=== PATIENT | male | born 1960 | race Caucasian/White ===

== ENCOUNTER 2024-12-28 09:22 | Emergency (ER) | payer MEDICARE, MEDICAID, SELFPAY ==
[2024-12-28 09:23] VITALS: BP 148/110; PULSE 91; RESP 24; TEMP 36.8; O2SAT 98; BMI 21.2
--- NOTE | 2024-12-28 09:29 | XRR_ITS ---
PROCEDURE INFORMATION: Exam: XR Chest Exam date and time: 12/28/2024 9:35 AM Age: 64 years old Clinical indication: Cough and dyspnea and shortness of breath; Additional info: Dyspnea/cough TECHNIQUE: Imaging protocol: Radiologic exam of the chest. Views: 1 view. COMPARISON: No relevant prior studies available. FINDINGS: Lungs: There is a 10 mm nodular density projecting over the left lower chest which likely represents a nipple shadow. Consider nonemergent CT chest to confirm. No acute pulmonary infiltrates identified. Pleural spaces: Minimal blunting of the right costophrenic angle suggesting trace right pleural effusion. Heart/Mediastinum: Unremarkable. No cardiomegaly. Bones/joints: Unremarkable. Soft tissues: Unremarkable. XR/XR chest 1V portable 16090 IMPRESSION: 1. 10 mm nodular density of the left lung base, likely representing a nipple shadow. Consider nonemergent CT of the chest to confirm. 2. Blunting of the right costophrenic angle suggesting trace right pleural effusion.
--- NOTE | 2024-12-28 09:39 | W.ED.SOB ---
HPI - SOB/Dyspnea General: Chief Complaint: Shortness of Breath/Dyspnea Stated Complaint: SOB Time Seen by Provider: 12/28/24 09:25 History of Present Illness: HPI Narrative: 64-year-old male presents emergency room complaining of severe anxiety associated shortness of breath he is hyperventilating when he arrives he denies chest pain no recent fevers or chills. Patient states he is normally on 2 L of oxygen while he is here we will to titrate him down to room air and while at rest his sats were 100%. Patient states he has this frequently and is adamant that he be discharged home with Ativan as soon as I came into the room. He states he moved to this area recently is quite frustrated that nobody will refill his Ativan for him. Associated symptoms: Deny abdominal pain, chest pain or fever(s) Related Data Home Medications ?Medication ?Instructions ?Recorded ?Confirmed albuterol sulfate 90 mcg/actuation 4 puff inhalation Q4H PRN 12/28/24 12/28/24 aerosol inhaler Shortness Of Breath Or Wheezing amlodipine 10 mg tablet 10 mg PO DAILY 12/28/24 12/28/24 bupropion HCl 150 mg tablet,12 hr 150 mg PO BID 12/28/24 12/28/24 sustained-release hydroxyzine pamoate 25 mg capsule 25 mg PO TID 12/28/24 12/28/24 ibuprofen 200 mg tablet (Advil) 800 mg PO Q6H PRN Fever Or Pain 12/28/24 12/28/24 lisinopril 40 mg tablet 40 mg PO DAILY 12/28/24 12/28/24 tiotropium bromide 2.5 2 puff inhalation DAILY 12/28/24 12/28/24 mcg/actuation mist for inhalation (Spiriva Respimat) Previous Rx's ?Medication ?Instructions ?Recorded lorazepam 2 mg tablet (Ativan) 2 mg sublingual TID PRN anxiety 12/28/24 #10 tabs Allergies Allergy/AdvReac Type Severity Reaction Status Date / Time No Known Allergies Allergy Verified 12/28/24 09:30 Review of Systems Const: Denies: fever(s) or chills Card: Denies: chest pain Resp: Reports: dyspnea GI: Denies: abdominal pain : Denies: dysuria, urinary frequency or urinary urgency Musc: Denies: neck pain or back pain Skin/Breast: Denies: rash Physical Exam Const: COMMON NORMALS: no acute distress GENERAL APPEARANCE: cooperative and comfortable ORIENTATION/CONSCIOUSNESS: Yes awake, Yes oriented to person, Yes oriented to place and Yes oriented to time HENMT: COMMON NORMALS: normocephalic, atraumatic and hearing grossly normal bilaterally HEAD & SCALP: normocephalic and atraumatic Resp: COMMON NORMALS: clear to auscultation bilaterally EFFORT & INSPECTION: Yes tachypneic AUSCULTATION: clear to auscultation bilaterally Cardio: COMMON NORMALS: regular rate, regular rhythm and No murmurs present (Cardio) RATE: regular rate RHYTHM: regular rhythm GI: COMMON NORMALS: Soft to palpation and No hepatosplenomegaly present AUSCULTATION: Yes normoactive bowel sounds PALPATION: Yes Soft to palpation, No Tenderness to palpation present (GI), No Guarding due to palpation present (GI) and Yes No hepatosplenomegaly present Extremity: COMMON NORMALS: normal to inspection, capillary refill normal, no clubbing, cyanosis or edema, no calf tenderness and no pedal edema Neuro: SENSORIUM/ORIENTATION: Yes oriented to person, Yes oriented to place and Yes oriented to time Skin: COMMON NORMALS: no rashes or lesions noted GENERAL SKIN EXAM: no rashes or lesions noted Course Vital Signs: Vital signs: Vital Signs Temperature 98.3 F 12/28/24 09:23 Pulse Rate 91 12/28/24 12:02 Respiratory Rate 24 H 12/28/24 09:23 Blood Pressure 148/77 12/28/24 12:02 Pulse Oximetry 99 12/28/24 12:02 Oxygen Delivery Me thod Room Air 12/28/24 09:23 MDM - SOB/Dyspnea Medical Decision Making After the Ativan patient is feeling much better is not having any further symptoms laboratory tests were unremarkable other than the ABG which showed severe hyperventilation. No acute findings on his chest x-ray or his EKG. Discharge patient home and give him a small number of Ativan to use. Encouraged him to set up with a primary care doctor and with [facility]. Medical Records I reviewed the patient's medical records. Lab Data I reviewed the patient's lab results. 12/28/24 09:58 12/28/24 09:58 Labs/Radiology: Radiology Impressions Chest X-Ray 12/28/24 09:29 IMPRESSION: 1. 10 mm nodular density of the left lung base, likely representing a nipple shadow. Consider nonemergent CT of the chest to confirm. 2. Blunting of the right costophrenic angle suggesting trace right pleural effusion. Laboratory Results WBC 9.58 10^3/uL (3.29-11.43) 12/28/24 09:58 RBC 5.97 10^6/uL (3.85-5.65) H 12/28/24 09:58 Hgb 17.10 g/dL (11.27-16.99) H 12/28/24 09:58 Hct 52.2 % (37-53) 12/28/24 09:58 MCV 87.4 fl (82-101) 12/28/24 09:58 MCH 28.6 pg (27-33) 12/28/24 09:58 MCHC 32.8 g/dL (30-55) 12/28/24 09:58 RDW 14.4 % (12.1-15.1) 12/28/24 09:58 Plt Count 308 10^3/cmm (157-399) 12/28/24 09:58 MPV 8.3 fL (7.4-10.4) 12/28/24 09:58 Neut % (Auto) 58.7 % 12/28/24 09:58 Lymph % (Auto) 29.3 % 12/28/24 09:58 [place] % (Auto) 7.4 % 12/28/24 09:58 Eos % (Auto) 3.0 % 12/28/24 09:58 Baso % (Auto) 0.7 % 12/28/24 09:58 Neut # (Auto) 5.61 10^3/uL (1.8-7.7) 12/28/24 09:58 Lymph # (Auto) 2.8 10^3/uL (0.8-4.8) 12/28/24 09:58 [place] # (Auto) 0.7 10^3/uL (0.2-0.9) 12/28/24 09:58 Eos # (Auto) 0.3 10^3/uL (0.0-0.8) 12/28/24 09:58 Baso # (Auto) 0.1 10^3/uL (0.0-0.1) 12/28/24 09:58 Nucleated RBC % (auto) 0 % 12/28/24 09:58 Nucleated RBCs # 0.0 /100WBC 12/28/24 09:58 Specimen Type Arterial 12/28/24 09:29 Sample Site Radial, left 12/28/24 09:29 ABG pH 7.62 (7.35-7.45) H* 12/28/24 09: ABG pCO2 23.0 mmHg (35-45) L 12/28/24 09: ABG pO2 77.6 mmHg (80.0-100.0) L 12/28/24 09: ABG HCO3 23.7 mmol/L (22-26) 12/28/24 09: ABG O2 Saturation 98.1 12/28/24 09: ABG Base Excess 4.6 mmol/L (-2.0-2.0) H 12/28/24 09: Shahriar Test Pos 12/28/24 09: A-a O2 Gradient 5.6 mmHg (5-10) 12/28/24 09:29 Hematocrit 53.7 % (42-52) H 12/28/24 09:29 Hgb O2 Saturation 93.9 % (95-100) L 12/28/24 09:29 Carboxyhemoglobin 3.6 %THgb (0.4-20.1) 12/28/24 09: Methemoglobin 0.7 % (0.4-1.5) 12/28/24 09: Total Hemoglobin 17.5 g/dL (14-18) 12/28/24 09: Sodium 136.0 mmol/L (131-143) 12/28/24 09:29 Potassium 3.9 mmol/L (3.5-5.0) 12/28/24 09: Glucose 103.0 mg/dL (70-115) 12/28/24 09: Ionized Calcium 1.1 mmol/L (1.1-1.4) 12/28/24 09:29 O2 Delivery Device Nc 12/28/24 09:29 O2 Liters/Min 3.0 % 12/28/24 09:29 Medical Education Manager ID [place] 12/28/24 09:29 Sodium 133 mmol/L (136-145) L 12/28/24 09:58 Potassium 4.3 mmol/L (3.5-5.1) 12/28/24 09:58 Chloride 97 mmol/L (98-107) L 12/28/24 09:58 Carbon Dioxide 22 mmol/L (22-29) 12/28/24 09:58 Anion Gap 18.3 (5-19) 12/28/24 09:58 BUN 20 mg/dL (8-23) 12/28/24 09:58 Creatinine 0.8 mg/dL (0.7-1.2) 12/28/24 09:58 GFR Calculation 97.0 mL/min (90-130) 12/28/24 09:58 Glucose 106 mg/dL (65-115) 12/28/24 09:58 Calculated Osmolality 279 mOsm/kg (285-295) L 12/28/24 09:58 Calcium 9.3 mg/dL (8.5-10.5) 12/28/24 09:58 Total Bilirubin 0.5 mg/dL (0.15-1.2) 12/28/24 09:58 AST 23 U/L (0-40) 12/28/24 09:58 ALT 28 U/L (0-41) 12/28/24 09:58 Alkaline Phosphatase 119 U/L (40-130) 12/28/24 09:58 Troponin T Baseline 9 ng/L (0-15) 12/28/24 09:58 Total Protein 7.0 g/dL (6.6-8.7) 12/28/24 09:58 Albumin 4.1 g/dL (3.5-5.2) 12/28/24 09:58 Globulin 2.9 g/dL (1.3-4.6) 12/28/24 09:58 Urine Color Yellow (Yellow) 12/28/24 10:25 Urine Appearance Clear (CLEAR) 12/28/24 10:25 Urine pH 8.0 (5-7) A 12/28/24 10:25 Ur Specific [place] 1.013 (1.005-1.030) 12/28/24 10:25 Urine Protein Negative (Negative) 12/28/24 10:25 Urine Glucose (UA) Negative (Normal) 12/28/24 10:25 Urine Ketones Negative (Negative) 12/28/24 10:25 Urine Blood Negative (Negative) 12/28/24 10:25 Urine Nitrate Negative (Negative) 12/28/24 10:25 Urine Bilirubin Negative (Negative) 12/28/24 10:25 Urine Urobilinogen 1.0 mg/dL (Negative) 12/28/24 10:25 Ur Leukocyte Esterase Negative (Negative) 12/28/24 10:25 Urine RBC 0-2 /hpf (0-2) 12/28/24 10:25 Urine WBC 0-5 /hpf (0-5) 12/28/24 10:25 Ur Squamous Epith Cells 0-5 /hpf (0-5) 12/28/24 10:25 Amorphous Sediment Not Reportable 12/28/24 10:25 Urine Bacteria None seen /hpf (NONE) 12/28/24 10:25 Hyaline Casts 0-4 /lpf H 12/28/24 10:25 Influenza A (PCR) Negative (Negative) 12/28/24 09:52 Influenza Type B (PCR) Negative (Negative) 12/28/24 09:52 RSV (PCR) Negative (Negative) 12/28/24 09:52 SARS-CoV-2 (PCR) Negative (Negative) 12/28/24 09:52 All radiology interpretation(s) finalized by discharge EKG Data EKG 1: Interpretation: EKG 12/28/2024 948 normal sinus rhythm Q waves in V12 and 3. No acute ST changes noted rate of 87 TX interval 182 QTc 425. No previous EKGs for comparison EKG 2: Interpretation: EKG 12/28/2024 1115 normal sinus rhythm rate of 83. 181 QTc 461 Q waves in V12 and [address] changes noted no ST elevation compared to previous EKG same day unchanged Discharge Plan Discharge Patient Disposition: Home Clinical Impression: Hyperventilation, Anxiety Condition: Stable Prescriptions: New lorazepam [Ativan] 2 mg tablet 2 mg sublingual TID PRN (Reason: anxiety) Qty: 10 0RF No Action bupropion HCl 150 mg tablet sustained-release 12 hr 150 mg PO BID amlodipine 10 mg tablet 10 mg PO DAILY albuterol sulfate 90 mcg/actuation HFA aerosol inhaler 4 puff INHALATION Q4H PRN (Reason: Shortness Of Breath Or Wheezing) lisinopril 40 mg tablet 40 mg PO DAILY hydroxyzine pamoate 25 mg capsule 25 mg PO TID Spiriva Respimat 2.5 mcg/actuation mist 2 puff INHALATION DAILY ibuprofen [Advil] 200 mg Tablet 800 mg PO Q6H PRN (Reason: Fever Or Pain) Discharge Orders: Discharge ED (Routine); Ordered 12/28/24 Ordered By: Justin Roe Discharge Diet: Usual diet Discharge Activity: Increase activity as tolerated Patient Instructions: Opioid Safety, Pain Management, Patient Portal & Alyssa Instructions Activity Restrictions/Additional Instructions: [facility] It is very important that you follow up as instructed or that you return to the Emergency Department should you have concerns or if your condition changes or worsens in any way. You are seen in the emergency room with an anxiety attack. You were hyperventilating at the time your arrival confirmed by your ABG. Your other laboratory studies and chest x-ray unremarkable. Be discharged home with Ativan to use 2 mg every 8 hours as needed. You should establish with a primary care doctor and with [facility] for long-term management of your anxiety issues and general health issues. Print Language: Belarusian Coding Level of Care Code ED Type Proof Reproducer for Lawrence Heath
[2024-12-28 09:40] LABS: ABG PCO2 23.0 mmHg (35-45); ABG PH Result 7.62 (7.35-7.45); Alveolar-Arterial Oxygen Gradi 5.6 mmHg (5-10); Arterial Blood Gas Hematocrit 53.7 % (42-52); Blood Gas Allen Test Pos; Blood Gas LPM 3.0 %; Blood Gas Operator Identificat WALCI; Blood Gas Sample Site Radial, left; Blood Gas Sample Type Arterial; Carboxyhemoglobin 3.6 %THgb (0.4-20.1); Glucose Level-ABG 103.0 mg/dL (70-115); HCO3 ABG 23.7 mmol/L (22-26); Ionized Calcium Level - ABG 1.1 mmol/L (1.1-1.4); Methemoglobin 0.7 % (0.4-1.5); Oxygen Saturation ABG 98.1; PO2 ABG 77.6 mmHg (80.0-100.0); Potassium Level - ABG 3.9 mmol/L (3.5-5.0); Sodium Level - ABG 136.0 mmol/L (131-143)
--- NOTE | 2024-12-28 09:48 | ECG_ITS ---
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 Measurements Intervals [place] Rate: 87 P: 72 OR: 182 QRS: 59 QRSD: 79 T: 72 QT: 352 QTc: 425 Interpretive Statements SINUS RHYTHM SEPTAL MYOCARDIAL INFARCTION , OF INDETERMINATE AGE [40+ ms Q WAVE IN V1/V2] Compared to ECG 09/30/2015 18:03:49 Myocardial infarct finding now present Electronically Signed On 12-28-2024 22:50:03 CDT by Luis Enrique Flanagan M.D. [email or web address] [id number]
[2024-12-28] MEDS: LORazepam 1 MG/0.5 ML injection IVP (10:03)
[2024-12-28 10:09] LABS: Hematocrit 52.2 % (37-53); Hemoglobin 17.10 g/dL (11.27-16.99); Mean Corpuscular HGB Conc 32.8 g/dL (30-55); Mean Corpuscular Hemoglobin 28.6 pg (27-33); Mean Corpuscular Volume 87.4 fl (82-101); Nucleated Red Blood Cells % 0 %; Platelet Count 308 10^3/cmm (157-399); Red Blood Count 5.97 10^6/uL (3.85-5.65); White Blood Count 9.58 10^3/uL (3.29-11.43)
[2024-12-28 10:25] LABS: Alanine Aminotransferase 28 U/L (0-41); Albumin Level 4.1 g/dL (3.5-5.2); Alkaline Phosphatase 119 U/L (40-130); Anion Gap 18.3 (5-19); Aspartate Amino Transferase 23 U/L (0-40); Blood Urea Nitrogen 20 mg/dL (8-23); Calcium 9.3 mg/dL (8.5-10.5); Carbon Dioxide 22 mmol/L (22-29); Chloride 97 mmol/L (98-107); Creatinine Clr Calc Pharmacy 86.5120; Globulin 2.9 g/dL (1.3-4.6); Glucose 106 mg/dL (65-115); Osmolality Calculated 279 mOsm/kg (285-295); Potassium 4.3 mmol/L (3.5-5.1); Sodium 133 mmol/L (136-145); Total Protein 7.0 g/dL (6.6-8.7)
[2024-12-28 10:27] LABS: Troponin(5th) Baseline 9 ng/L (0-15)
[2024-12-28 10:38] LABS: Glucose Urine UA Negative (Normal); Nitrate Urine Negative (Negative); Specific Gravity, Urine 1.013 (1.005-1.030)
[2024-12-28 10:43] LABS: Add Urine Microscopic? YES
--- NOTE | 2024-12-28 10:43 | PC.PHAR ---
pATIENT STATES HE HASN'T TAKEN HIS MEDICATIONS IN A WHILE . tHEN STATES MAYBE 3DAYS AGO. pATIENT HAS hYDROXYZINE AND STATES IT DOESN'T WORK AND HE DOESN'T REALLY TAKE IT . hE TAKES CLONAZAPAM BUT IS OUT AND IT HELPS BETTER WITH HIS ANXIETY. pATIENT TAKES iBPROFEN A FEW TIMES A DAY TO HELP WITH HIS ANXIETY , BUT STATES IT DOESN'T HELP GOOD BECAUSE HE WORRIES A LOT.
[2024-12-28 11:02] LABS: Respiratory Syncytial Virus Ce NEGATIVE (Negative); SARS-CoV-2 PCR NEGATIVE (Negative)
--- NOTE | 2024-12-28 11:15 | ECG_ITS ---
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 Measurements Intervals [place] Rate: 83 P: 76 VT: 181 QRS: 59 QRSD: 99 T: 72 QT: 392 QTc: 461 Interpretive Statements SINUS RHYTHM SEPTAL MYOCARDIAL INFARCTION , PROBABLY OLD [40+ ms Q WAVE IN V1/V2] Compared to ECG 12/28/2024 09:48:34 No significant changes Electronically Signed On 12-28-2024 22:49:36 CDT by Luis Enrique Flanagan M.D. [id number]
[2024-12-28 11:46] VITALS: BP 148/110; PULSE 92; O2SAT 96
[2024-12-28 12:02] VITALS: BP 148/77; PULSE 91; O2SAT 99
--- NOTE | 2024-12-29 07:39 | DCPLANNER ---
messaged [facility] and [facility] for er f/u
== END 2024-12-28 12:10 | disposition home or self-care (01) ==
PROVIDERS: Emergency Provider Family Medicine
DX: R06.4 Hyperventilation (principal); F41.9 Anxiety disorder, unspecified; Z11.52 Encounter for screening for COVID-19
CPT/HCPCS: 36415; 36600; 71045; 80051; 80053; 81001; 82330; 82805; 84484; 85025; 87637; 93005; 96374; 99285; J2060

== ENCOUNTER 2025-02-06 15:43 | Emergency (ER) | payer MEDICARE, MEDICAID, SELFPAY ==
--- OUTSIDE RECORDS SUMMARY | 2023-06-12 04:03 | XMS_ITS | Continuity of Care Document ---
Author Organization [facility] Address [address] [id number] [address] Phone Care Team Providers Care Dental Aide Name Role Phone Wiliam Mattie AWAN Unavailable Unavailable Allergies, Adverse Reactions, Alerts Substance Reaction Status Criticality No Known Allergies Active No Inform ation Medications Medication Instructions Dosage Effective Dates (start - stop) Status Comments lisinopril 40 mg tablet TAKE 1 TABLET BY MOUTH EACH DAY>>NO FURTHER REFILLS UNTIL SEEN BY PCP - Active >>NO FURTHER REFILLS UNTIL SEEN BY PCP amlodipine 10 mg tablet TAKE 1 TABLET BY ORAL ROUTE EVERY DAY>>NO FURTHER REFILLS UNTIL SEEN BY PCP - Active >>NO FURTHER REFILLS UNTIL SEEN BY PCP hydroxyzine pamoate 25 mg capsule TAKE 1 CAPSULE BY MOUTH FOUR TIMES DAILY>>NO FURTHER REFILLS UNTIL SEEN BY PCP - Active >>NO FURTHER REFILLS UNTIL SEEN BY PCP Blood Pressure Cuff check blood pressure morning and night - Active Blood Pressure Kit Check blood pressure morning and night - Active Procedures Procedure Date OFFICE/OUTPATIENT VISIT EST OFFICE/OUTPATIENT VISIT, NEW Advance Directives Directive Yes / No Effective Date File Name No Information Encounters Encounter Description Practice Location Reason(s) For Visit Diagnoses Date Provider Providers Copied on Encounter [facility], [id number]- [facility], [place]IMO Gupta, [id number], [place] tel:[phone] Family Medicine F1 No Information 4 Wiliam Phelps. [address] [facility], [place], [place], [id number] , [place]. tel:[phone] [facility], [id number]- [facility], [place], [place], [id number], [place] tel:[phone] Family Medicine F1 No Information 3 Wiliam Phelps. [address] [place], [place], [id number] , [place]. tel:[phone] OFFICE/OUTPA TIENT VISIT [facility], [id number]- [facility], [place], [place], [id number], [place] tel:[phone] Family Medicine F1 hypertension (chief complaint)Hos pital followup (chief complaint) Hypertensive crisisMood disorder 2 Dennis Chacon. [address] [place], [place], [id number] , [place]. tel:[phone] Referring Provider: Ines Collins N, [address] [place], [address] . tel:[phone] OFFICE/OUTPA TIENT VISIT, [facility], [id number]- [place], [id number], [place] tel:[phone] Family Medicine F1 Pain (chief complaint)Anx iety (chief complaint)PHQ 24 (chief complaint)hyp ertension (chief complaint) PainEstablishing care with new doctor, encounter forAnxiety 1 Wiliam Phelps. [address] [place], [place], [id number] , [place]. tel:[phone] Referring Provider: Mattie Swain R, [address] [place], [address] . tel:[phone] Family History Family Member Type Diagnosis Age At Onset No Information Payers Payer name Insurance type Covered republican ID Lyndon herrera(s) M [place] Medicaid [id number] Social History Type Description Quantity Date Captured Comments Alcohol Use Details Unknown Caffeine Use Details Unknown Tobacco Use Status Smoking Status No Information Sex Male Sexual Orientation Heterosexual Gender Identity Male Chief Complaint And Reason For Visit No Information Reason For Referral Reason For Referral No Information Plan Of Treatment Date Type Action Status Future Order: Lab Order CBC With Differential/Platelet ([id number]), Sent on: Sent Future Order: Lab Order Lipid Pr ofile ([id number]), Sent on: Sent Future Order: Lab Order CMP ([id number]), Sen t on: Sent Future Order: Lab Order PSA ([id number]), Sen t on: Sent History Of Present Illness Encounter Date Complaint History Of Prese nt Illness hypertension It is currently stable. Risk factors include age over age 60 and male gender. Associated symptoms include fatigue and headache. Pertinent negatives include chest pain, claudication and confusion. Additional information: Patient was seen at [facility] for high blood pressure. States the facility checks his BP once a week. C/o fatigue when BP 90/56 Hospital followup Pt went to ER for blood pressure reading 230/120 on 02/25. He was started on Amlodipine 5mg, Lisinopril 40mg, and He returned to ER with Blood pressure reading 168/90 on 03/05. No medications were adjusted at this time. He has his blood pressure monitored weekly at the facility, he will begin monitoring it once a week. His blood pressure today is 90/56. He is needing medications refilled today. He states that he takes his medications as prescribed. He is unsure what triggers his high blood pressure episodes. He takes hydroxyzine prn with no improvement in anxiety. PHQ 24 hypertension Anxiety This is an initi al visit. The client reports functioning as extremely difficult. The client presents with anxious/fearful thoughts and depressed mood. The Anxiety is associated with chronic pain. Additional information: Pt has anxiety and depression. Left snf AMA. Was on pain medication. Pt is living at [facility]. 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 Pt was being seen at [facility]. Pt was in snf about a month ago. Pt left AMAPt is here wanting narcotics. Pt has necrotizing fascitis. Pt has hx of alcohol abuse. Pt is living at the [facility].Pt is made and irritable today Signed records release but refused UDS. Functional Status Date Functional Assessmen t No Information Instructions Date Instruction Additional Infor yocasta Continue therapyCont inue Hydroxyzine as prescribed, refilled today Related to Mood disorder [facility] medical records on chart, reviewed with patientDiscussed when to seek immediate careLabs ordered, will followup with abnormal labsReviewed dietary guidelines for hypertension management Continue current medication and monitor BP regularly, blood pressure monitor sent to pharmacy. Provided BP log with patient to bring to followup julisa in 1 monthCall office for consistently elevated SBP > 150 mmhg or DBP > 90mmHgEmphasized importance of daily exercise and low salt diet. Related to Hypertensive crisis Signed a release. Pt is ittitable. Pt wants pain medication. Related to Anxiety Signed release for eri muhammad. Explained process for pain management. Refused UDS today. Related to Pain Mental health care education Rel ated to Pain Assessments Type Assessment Date No Information Patient Care Teams Name Effective Dates (start - stop) Status Members No Information
--- OUTSIDE RECORDS SUMMARY | 2025-01-31 10:00 | XMS_ITS | Encounter Summary ---
Author Organization [facility] Address [address] [place] [address] Care Team Providers Care Non Ferrous Material Handler Name Role Phone Jose Juan Self MD Primary Care Provider [phone] Reason for Referral * CT Scan (Routine) - Open Specialty Diagnoses / Procedures Referred By Iron aldana Referred To Contact Radiology Diagnoses Mass of upper lobe of right lung Procedures CT CHEST W CONTRAST Jose Juan Self MD [address] [address] Phone: tel: fax: [facility] CT Scan [place] [address] [address] Phone: tel: fax: Referral ID Status Reason Start Date Expiration Date V isits Requested Visits Authorized [id number] Open [facility] View CTS to Schedule 01/31/2025 03/03/2026 1 1 Reason for Visit * Reason Comments ER Follow Up COPD; pt reports he is not improving COPD Anxiety Abscess Possible abscess und er left arm; painful; no drainage Cough Very thick; yellow a nd green in color Encounter Details Date Type Department Care Team (Late st Contact Info) Description 01/31/2025 10:00 AM CDT Office Visit [facility] [place] [address] [phone] Jose Juan Self MD [address] [address] Panlobular emphysema (CMS/HCC) (Primary Dx); Essential hypertension; ANDRE (generalized anxiety disorder); Moderate episode of recurrent major depressive disorder (CMS/HCC); Chronic hepatitis C without hepatic coma (CMS/HCC); COPD with exacerbation (CMS/HCC); Chronic hypoxic respiratory failure (CMS/HCC); Chronic diastolic congestive heart failure (CMS/HCC); Tobacco use; PAD (peripheral artery disease); Panic anxiety syndrome; Mass of upper lobe of right lung; Hidradenitis suppurativa Social History Tobacco Use Types Packs/Day Years Used Date Smoking Tobacco: Every Day Cigarettes 0.3 50 Smokeless Tobacco: Former Comments:Quit smoking: Abou t ready to give that up - 2 to 3 a day 2-23 Alcohol Use Standard Drinks/Week Comments No 0 (1 standard drink = 0.6 oz pur e alcohol) Food Insecurity Answer Date Recorded Do you find you are eating l ess than you should because you can t pay for food? Yes 06/07/2024 Transportation Needs Answer Date Record ed Have you gone without health care because you didn t have a way to get there? 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 Yes 2024 Utility Needs Answer Date Recorded Do you have difficulty payin g for utility costs (electric, water or gas bills)? Yes 06/07/2024 Feeling Safe Answer Date Recorded Are you in a relationship wi th someone who hurts you emotionally and/or physically? 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 Gender Identity Not on file Sexual Orientation Not on file documented as of this encounter Last Filed Vital Signs Vital Sign Reading Time Taken Comments Blood Pressure 168/88 01/31/2025 10:07 AM CDT Pulse 98 01/31/2025 9:55 AM CDT Temperature 36.7 C (98 F) 01/31/2025 9:55 AM CDT Respiratory Rate 25 01/31/2025 9:55 AM CDT Oxygen Saturation 96% 01/31/2025 9:55 AM CDT Inhaled Oxygen Concentration - - Weight 72.1 kg (159 lb) 01/31/2025 9:55 AM CDT Height 172.7 cm (5' 8 ) 01/31/2025 9:55 AM CDT Body Mass Index 24.18 01/31/2025 9:55 AM CDT documented in this encounter Progress Notes * Jose Juan Self MD - 01/31/2025 11:02 AM CDT [facility] 01/31/2025 Subjective: Alejandro Jasso Jr. is a 64 y.o. male who comes today for evaluation of ER Follow Up (COPD; pt reports he is not improving), COPD, Anxiety, Abscess (Possible abscess under left arm; painful; no drainage), and Cough (Very thick; yellow and green in color) . History of Present Illness The patient presents for evaluation of COPD, emphysema, anxiety, depression, hypertension, hepatitis, and hidradenitis. He reports experiencing panic attacks and has been prescribed medication to be placed under his gums, which he finds ineffective. This morning, he had a panic attack while using the toilet. He acknowledges excessive worrying. Currently, he is taking hydroxyzine for anxiety and has previously taken BuSpar, which he found helpful. Wellbutrin was not beneficial for him. He does not sleep well at night and frequently wakes up. Additionally, he experiences restless legs syndrome. Previously, he was on Klonopin three times a day, which provided some relief. He has not received treatment for his hepatitis, which he has had for several years without any issues. He has abstained from drug use but continues to smoke nicotine, although less than before. He is currently on oxygen therapy. He has a persistent cough that produces minimal phlegm. He uses an albuterol machine every 4 to 6 hours and is also on Spiriva. He does not have any other inhalers. He uses a nebulizer with two different medications, one of which is albuterol. He has not seen a lung specialist. He was informed thatone of his lungs is non-functional. He has been taking Robitussin DM at night. He has been off his blood pressure medication due to lack of insurance. He has a history of artery blockages and was previously on Norvasc. He has a history of COPD and emphysema, which have been causing him significant distress. Over the past year, he has been hospitalized frequently due to blood clots and spent some time in a care home. His primary care physician was changed without his knowledge, leading to a disruption in his medication regimen. He has been informed that one of his lungs is non-functional. He has been using analbuterol machine every 4 to 6 hours and is also on Spiriva. He does not have any other inhalers. He uses a nebulizer with two different medications, one of which is albuterol. He has not seen a lungspecialist. He has a spot under his arm that has been causing him discomfort. The spot disappeared but reappeared a few days ago. He does not frequently get these spots. Tobacco: The patient smokes cigarettes, although less than before. Recreational Drugs: The patient reports no current use of recreational drugs. Sleep: The patient reports poor sleep quality, frequently waking up at night. Living Condition: The patient lives with family PAST SURGICAL HISTORY: He has undergone bypass surgery in his lower legs. Review of Systems Constitutional: Negative for fever. Respiratory: Positive for cough, sputum production, shortness of breath and wheezing. Cardiovascular: Negative for chest pain. Gastrointestinal: Negative for abdominal pain. Skin: Negative for rash. Neurological: Negative for weakness. Psychiatric/Behavioral: Positive for depression. The patient is nervous/anxious. Objective: Vitals: 01/31/25 0955 01/31/25 1007 Temp: 98 ??F (36.7 ??C) Pulse: 98 BP: (!) 162/90 (!) 168/88 Resp: 25 SpO2: 96% Physical Exam Vitals and nursing note reviewed. Constitutional: General: He is not in acute distress. Appearance: Normal appearance. He is ill-appearing. HENT: Head: Normocephalic and atraumatic. Eyes: Conjunctiva/sclera: Conjunctivae normal. Cardiovascular: Rate and Rhythm: Normal rate and regular rhythm. Heart sounds: Normal heart sounds. Pulmonary: Effort: Respiratory distress present. Breath sounds: Wheezing and rhonchi present. Comments: Significant work of breathing, currently on oxygen 3 L by nasal cannula Abdominal: Palpations: Abdomen is soft. Musculoskeletal: Cervical back: Neck supple. Skin: Findings: No rash. Neurological: Mental Status: He is alert and oriented to person, place, and time. Mental status is at baseline. Psychiatric: Mood and Affect: Mood normal. Behavior: Behavior normal. Past medical history, surgical history and social history reviewed. 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 Panlobular emphysema ([facility] J43.1 492.8 albuterol sulfate HFA 90 mcg/actuation aerosol inhaler budesonide 160 mcg-glycopyr 9 mcg-formot 4.8 mcg/actuation HFA inhaler albuterol (PROVENTIL,VENTOLIN) 2.5 mg /3 mL (0.083 %) Solution for Nebulization 2. Essential hypertension I10 401.9 lisinopriL (PRINIVIL) 40 mg tablet amLODIPine (NORVASC) 10 mg tablet prazosin (MINIPRESS) 1 mg capsule 3. ANDRE (generalized anxiety disorder) F41.1 300.02 busPIRone (BUSPAR) 10 mg tablet buPROPion HCL (WELLBUTRIN SR) 150 mg Sustained Release 12 hour tablet hydrOXYzine pamoate (VistariL) 25 mg capsule prazosin (MINIPRESS) 1 mg capsule clonazePAM (KlonoPIN) 0.5 mg Tablet 4. Moderate episode of recurrent major depressive disorder ([facility] F33.1 296.32 buPROPion HCL (WELLBUTRIN SR) 150 mg Sustained Release 12 hour tablet 5. Chronic hepatitis C without hepatic coma ([facility]) B18.2 070.54 6. COPD with exacerbation ([facility]) J44.1 491.21 albuterol sulfate HFA 90 mcg/actuation aerosol inhaler albuterol (PROVENTIL,VENTOLIN) 2.5 mg /3 mL (0.083 %) Solution for Nebulization doxycycline hyclate (VIBRAMYCIN) 100 mg tablet predniSONE (DELTASONE) 10 mg tablet 7. Chronic hypoxic respiratory failure ([facility]) J96.11 518.83 799.02 8. Chronic diastolic congestive heart failure ([facility]) I50.32 428.32 428.0 9. Tobacco use Z72.0 305.1 10. PAD (peripheral artery disease) I73.9 443.9 11. Panic anxiety syndrome F41.0 300.01 clonazePAM (KlonoPIN) 0.5 mg Tablet 12. Mass of upper lobe of right lung R91.[address] CHEST W CONTRAST 13. Hidradenitis suppurativa L73.2 705.83 Assessment & Plan 1. Chronic Obstructive Pulmonary Disease (COPD): - Reports using an albuterol machine every 4 to 6 hours and is also on Spiriva. - A repeat chest CT will be ordered to monitor the spot in the right lung. - Breztri will be prescribed to replace Spiriva and some of his nebulizer liquids. Albuterol liquidfor the nebulizer will be provided as an alternative to the rescue inhaler. Advised to avoid inhalation of tobacco and marijuana and to adhere to all prescribed medications. 2. Emphysema: - Reports difficulty breathing and uses oxygen. - A repeat chest CT will be ordered to monitor the spot in the right lung. - Consider pulmonology referral, azithromycin Thursday versus Daliresp 3. Anxiety: - Reports experiencing panic attacks and has been previously on Klonopin, which he found helpful. - Klonopin will be prescribed to manage his anxiety. Advised to adhere to all prescribed medications. - Continue Wellbutrin, BuSpar, as needed hydroxyzine, prazosin at bedtime - Counseled on the risks of respiratory depression, oversedation with sedatives such as Klonopin inthe setting of COPD and chronic respiratory failure, patient voiced understanding and has toleratedthis well before -Consider future urine drug screen to ensure no additional substance abuse 4. Depression: - Reports not sleeping well and experiencing restless legs syndrome. - Prescription for his previous anxiety and depression medications will be sent. Advised to adhere to all prescribed medications. 5. Hypertension: - Reports being off his blood pressure medication due to insurance issues. - Prescription for his previous blood pressure medication will be sent. Advised to adhere to all prescribed medications. 6. Hepatitis: - Reports having hepatitis for years without treatment. - A retest will be conducted to determine if the hepatitis is still active. - Consider liver imaging 7. Hidradenitis: - Reports a recurring sore under his arm. - Antibiotics and steroids will be prescribed to help with the spot under his arm. - Consider I&D if worsening Follow-up: The patient will follow up in 1 month. Jose Juan Self MD The author of this note, patient (or authorized digital media representative), and all other persons present consent to the audio recording of this visit for charting documentation purposes. This note was automatically generated by a Generative AI technology ([employer]), reviewed, edited, and finalized by Jose Juan Self MD. documented in this encounter Plan of Treatment Upcoming Encounters Date Type Department Care Team (Late st Contact Info) Description 02/08/2025 2:40 PM CDT Office Visit [address] [phone] Mala Rhodes FNP [address] [phone] 02/28/2025 3:20 PM CDT Office Visit [address] [phone] Jose Juan Self MD [address] [phone] 04/13/2025 4:20 PM FIELD SERVICE ANALYST Office Visit [address] [phone] Jose Juan Self MD [address] [place] [address] 07/14/2025 8:00 AM FIELD SERVICE ANALYST Office Visit [facility] [address] [place] [address] Mala Rhodes FNP [address] [place] [address] Scheduled Orders Name Type Priority Associated Diagnoses Orde r Schedule CT CHEST W CONTRAST Imaging Routine Mass of upper lobe of right lung 1 Occurrences starting 01/31/2025 until 01/31/2026 documented as of this encounter Visit Diagnoses Diagnosis Panlobular emphysema (CMS/HCC)- Primary Other emphysema Essential hypertension Unspecified essential hypertension ANDRE (generalized anxiety disorder) Generalized anxiety disorder Moderate episode of recurrent major depressive disorder (CMS/HCC) Chronic hepatitis C without hepatic coma (CMS/HCC) COPD with exacerbation (CMS/HCC) Obstructive chronic bronchitis with exacerbation Chronic hypoxic respiratory failure (CMS/HCC) Chronic diastolic congestive heart failure (CMS/HCC) Chronic diastolic heart failure Tobacco use Tobacco use disorder PAD (peripheral artery disease) Unspecified disorders of arteries and arterioles Panic anxiety syndrome Panic disorder without agoraphobia Mass of upper lobe of right lung Hidradenitis suppurativa Hidradenitis documented in this encounter Care Teams Non Ferrous Material Handler Relationship Specialty Start Date End Date Jose Juan Self MD [address] [place] [phone] PCP - General Family Practice 01/11/25 documented as of this encounter
--- OUTSIDE RECORDS SUMMARY | 2025-02-03 19:14 | XMS_ITS | Encounter Summary ---
Author Organization [facility] Address [address] [place] [address] Care Team Providers Care Rn Clinical Name Role Phone Jose Juan Self MD Primary Care Provider [phone] Reason for Visit * Reason Comments Shortness of Breath Encounter Details Date Type Department Care Team (Late st Contact Info) Description 02/03/2025 7:14 PM CDT - 02/03/2025 9:39 PM CDT Emergency [facility] Emergency Medicine [address] [place] [address] Aron Benitez MD [address] [facility] [address] [place] [id number] Dyspnea, unspecified type (Primary Dx) Discharge Disposition: Home or Self Care Social History Tobacco Use Types Packs/Day Years [...] worry about transportation for future doctor visits, 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 Yes 2024 Utility Needs Answer Date Recorded Do you have difficulty payin g for utility costs (electric, water or gas bills)? Yes 06/07/2024 Feeling Safe Answer Date Recorded Are you in a relationship wi th someone who hurts you emotionally and/or physically? No 02/03/2025 Food Insecurity Answer Date Recorded Patient needs follow up regardin 09/14/2024 Transportation Needs Answer Date Record ed Patient needs follow up regardin 09/14/2024 Housing Stability Answer Date Recorded Social/Environmental Concerns No concerns Utility Needs Answer Date Recorded Patient needs follow up regardin 09/14/2024 Sex and Gender Information Value Date Recorded Sex Assigned at Not on file Legal Sex Male 6:13 AM PC TECH Gender Identity Not on file Sexual Orientation Not on file documented as of this encounter Last Filed Vital Signs Vital Sign Reading Time Taken Comments Blood Pressure 109/67 02/03/2025 9:00 PM CDT Pulse 87 02/03/2025 9:00 PM CDT Temperature 36.6 C (97.9 F) 02/03/2025 7:13 PM CDT Respiratory Rate 19 02/03/2025 9:00 PM CDT Oxygen Saturation 92% 02/03/2025 9:00 PM CDT Inhaled Oxygen Concentration - - Weight 75.7 kg (166 lb 12.8 oz) 02/03/2025 7:13 PM CDT Height 172.7 cm (5' 8 ) 02/03/2025 7:13 PM CDT Body Mass Index 25.36 02/03/2025 7:13 PM CDT documented in this encounter Discharge Instructions * Discharge Instructions* Aron Benitez MD - 02/03/2025 9:20 PM CDT Take prednisone as prescribed make sure you take it with some food. Follow-up with your primary care provider in 3 to 5 days if you have worsening shortness of breath chest pain or other concerning symptoms return to the emergency department * Attachments The following attachments cannot be sent through Care Everywhere. * SOB (Shortness of Breath) (French) * Prednisone (French) documented in this encounter Medications at Time of Discharge predniSONE (DELTASONE) 20 mg tablet Take 1 Tablet (20 mg) by mouth 2 times daily with meals for 5 days. 10 Tablet 02/09/20 25 lisinopriL (PRINIVIL) 40 mg tabletIndications :Essential hypertension Take 1 Tablet (40 mg) by mouth daily. 100 Tablet 3 5 busPIRone (BUSPAR) 10 mg tabletIndications :ANDRE (generalized anxiety disorder) Take 1 Tablet (10 mg) by mouth 3 times daily. 270 Tablet 3 5 buPROPion HCL (WELLBUTRIN SR) 150 mg Sustained Release 12 hour tabletIndications :ANDRE (generalized anxiety disorder),Moderat e episode of recurrent major depressive disorder (CMS/HCC) Take 1 Tablet (150 mg) by mouth 2 times daily. 180 Tablet 3 5 amLODIPine (NORVASC) 10 mg tabletIndications :Essential hypertension Take 1 Tablet (10 mg) by mouth daily. 90 Tablet 3 5 hydrOXYzine pamoate (VistariL) 25 mg capsuleIndication s:ANDRE (generalized anxiety disorder) Take 1 Capsule (25 mg) by mouth 3 times daily as needed for Anxiety. 90 Capsule 11 5 albuterol sulfate HFA 90 mcg/actuation aerosol inhalerIndication s:COPD with exacerbation (CMS/HCC),Panlobu lar emphysema (CMS/HCC) Take 2 Puffs by inhalation every 4 hours as needed for Wheezing or Shortness of Breath. 8.5 Gram 5 prazosin (MINIPRESS) 1 mg capsuleIndication s:Essential hypertension,ANDRE (generalized anxiety disorder) Take 1 Capsule (1 mg) by mouth daily at bedtime. 90 Capsule 1 5 budesonide 160 mcg-glycopyr 9 mcg-formot 4.8 mcg/actuation HFA inhalerIndication s:Panlobular emphysema (CMS/HCC) Take 2 Puffs by inhalation 2 times daily. 1 Each 11 5 clonazePAM (KlonoPIN) 0.5 mg TabletIndications :ANDRE (generalized anxiety disorder),Panic anxiety syndrome Take 1 Tablet (0.5 mg) by mouth 2 times daily. Replaces lorazepam 60 Tablet 5 albuterol (PROVENTIL,VENTOL IN) 2.5 mg /3 mL (0.083 %) Solution for NebulizationIndic ations:COPD with exacerbation (CMS/HCC),Panlobu lar emphysema (CMS/HCC) Take 3 mL (2.5 mg) by inhalation every 4 hours as needed for Shortness of Breath. 300 mL 11 5 doxycycline hyclate (VIBRAMYCIN) 100 mg tabletIndications :COPD with exacerbation (CMS/HCC) Take 1 Tablet (100 mg) by mouth 2 times daily for 14 days. 28 Tablet 5 02/15/20 25 arformoteroL (BROVANA) 15 mcg/2 mL Solution for Nebulization Take 2 mL (15 mcg) by inhalation 2 times daily for 15 days. 60 mL 5 02/13/20 25 lidocaine viscous 2% 2 % Solution 5 budesonide (PULMICORT RESPULE) 0.5 mg/2 mL Suspension for NebulizationIndic ations:Chronic hypoxic respiratory failure (CMS/HCC),Pulmona ry emphysema, unspecified emphysema type (CMS/HCC) Take 2 mL (0.5 mg) by inhalation 2 times daily. 60 Ampule 3 5 nebulizerIndicati ons:Chronic hypoxic respiratory failure (CMS/HCC),Pulmona ry emphysema, unspecified emphysema type (CMS/HCC) Length of need 99 months Nebulizer with compressor, Kit: Permanent Nebulizer Kit, 1 per 6 months, filters , areosol mask: No. Name of Medication Duoneb 1 Each 5 oxygen home delivery Home Oxygen Concentrator yes at 3 L/M Rest, 3 L/M Activity, 3 L/M Sleep, Delivery Device: Nasal Cannula Portability: yes, 3 L/M Rest, 3 L/M Activity, May provide device best for patient needs(E system,home fill, conserving device) Length of Need: 99 months 1 Each 5 multivitamin tx with iron and folic acid tablet 18-400 mg-mcg Tablet Take 1 Tablet by mouth daily. 30 Tablet 5 white petrolatum (VASELINE) Gel Apply to affected area see administration instructions. 97.5 Gram 5 aspirin (SAVITA CHEWABLE) 81 mg Tablet, ChewableIndicatio ns:Chronic obstructive pulmonary disease, unspecified COPD type (CMS/HCC) Take 1 Tablet (81 mg) by mouth daily. 30 Tablet 3 1 documented as of this encounter ED Notes * Lizette Contreras RCP - 02/03/2025 7:36 PM CDT SVN: Duoneb 0.5-2.5mg/3ml given and tolerated well. * Chelsey Grimaldo RN - 02/03/2025 7:20 PM CDT Patient arrives via EMS for c/o shortness of breath times 2 days. Patient reports history of COPD/Emphysema and wears 3L oxygen at all times. Received Albuterol, Duoneb, and 125mg of Solumedrol en route and 18G IV to the left wrist placed by EMS. * Aron Benitez MD - 02/03/2025 7:14 PM CDT HISTORY OF PRESENT ILLNESS Patient is a 64-year-old past medical history of hepatitis C CHF chronic emphysema. He is here withincreased shortness of breath. He states he is chronically short of breath and uses 3 L of oxygen at home but over the last 2 days has had an increase of his symptoms. No chest pain no cough no productive sputum no fevers has not had increase his oxygen at home has been using his home medicines andhas not ran out. No abdominal pain nausea or vomiting. Shortness of Breath PAST MEDICAL HISTORY REVIEWED MEDICAL: Patient has a past medical history of Abnormal EKG (06/21/2022), Acute blood loss anemia, Acute respiratory failure with hypoxemia (CMS/HCC) (06/19/2023), YURI (acute kidney injury) (08/18/2020), Axillary hidradenitis suppurativa (12/18/2024), Congestive heart failure (CMS/[facility]), Depression, Elevatedtroponin (06/20/2022), Emphysema of lung (CMS/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 SURGICAL: Patient has a past surgical history that includes pr unlisted px skin muc membrane & subq tissue (Bilateral, 09/04/2020); pr bypass w/vein aortobifemoral (Bilateral, 08/17/2020); pr teaec w/wo patch graft iliofemoral (Bilateral, 08/17/2020); fasciotomy (Bilateral, 08/17/2020); and pr teaec w/patch grf carotid vertb subclav neck inc (Right, 09/04/2020). ALLERGIES Patient has no known allergies. PHYSICAL EXAM INITIAL VS BP: 103/72 (02/03/251912), Heart Rate: (!) 109 bpm (02/03/251912), Resp: 24 (02/03/251912), Pulse: (!) 103 (02/03/251932), Temp: 97.9 ??F (36.6 ??C) (02/03/251912), Temp src: Tympanic (02/03/251912), SpO2: 96 % (02/03/251912), Height: 5' 8 (172.7 cm) (02/03/251912), Weight: 75.7 kg (166 lb12.8 oz) (02/03/251912), BMI (Calculated): (!) 25.38 (02/03/251912) No LMP for male patient. Physical Exam Vitals and nursing note reviewed. Constitutional: Appearance: He is well-developed. HENT: Head: Normocephalic and atraumatic. Eyes: Pupils: Pupils are equal, round, and reactive to light. Pulmonary: Effort: Pulmonary effort is normal. Breath sounds: Decreased breath sounds and wheezing present. No rhonchi. Abdominal: Palpations: Abdomen is soft. Musculoskeletal: General: Normal range of motion. Cervical back: Normal range of motion and neck supple. Right lower leg: No edema. Left lower leg: No edema. Skin: General: Skin is warm and dry. Neurological: General: No focal deficit present. Mental Status: He is alert. Psychiatric: Mood and Affect: Mood normal. Behavior: Behavior normal. DIAGNOSTICS LAB: CBC WITH DIFFERENTIAL - Abnormal Result Value WBC 13.0 (*) RBC 4.57 (*) HEMOGLOBIN 13.2 (*) HEMATOCRIT 40.6 MCV 88.8 MCH 28.9 MCHC 32.5 RDW 15.3 (*) RDW-STDEV 49.5 PLATELETS 275 MPV 8.5 (*) NEUTROPHILS 78 (*) LYMPHOCYTES 15 (*) MONOCYTES 6 EOSINOPHILS 0 (*) BASOPHILS 0 IMMATURE GRANULOCYTES 1 NEUTROPHIL ABSOLUTE 10.14 (*) LYMPHOCYTE ABSOLUTE 1.96 MONOCYTE ABSOLUTE 0.80 EOSINOPHIL ABSOLUTE 0.02 (*) BASOPHILS ABSOLUTE 0.03 IMMATURE GRANULOCYTES ABSOLUTE 0.08 COMPREHENSIVE METABOLIC PANEL - Abnormal SODIUM 144 POTASSIUM 4.1 CHLORIDE 103 CO2 30 (*) CALCIUM 9.2 BUN 20 CREATININE 0.94 GLUCOSE 155 (*) TOTAL PROTEIN 6.9 ALBUMIN 4.0 BILIRUBIN TOTAL 0.2 ALKALINE PHOSPHATASE 98 AST 20 ALT 11 GFR >60 ANION GAP 11 BRAIN NATRIURETIC PEPTIDE, BNP OR PROBNP - Abnormal PROBNP, N TERMINAL 286 (*) D-DIMER - Abnormal D-DIMER QUANT 1.31 (*) INFLUENZA VIRUS A AND B, ANTIGEN DETECTION - Normal INFLUENZA A AG Not Detected INFLUENZA B AG Not Detected TROPONIN BASELINE, 5TH GEN - Normal TROPONIN T, BASELINE 5TH GEN <6 MAGNESIUM LEVEL - Normal MAGNESIUM 2.3 COVID-19 ANTIGEN - Normal COVID-19 ANTIGEN Presumptive Negative TROPONIN 2 HR, 5TH GEN RADIOLOGY: CTA CHEST W AND/OR WO CONTRAST Radiologist Impression IMPRESSION: Motion degraded exam. 1. No PE identified. PE cannot be evaluated beyond the lobar level due to the limitations above. 2. Bronchiolitis. Some patchy groundglass airspace opacifications in the right lower lobe. 3. Chronic emphysematous changes and prominent blebs seen within the lung apices. MACRO: None XR CHEST PA OR AP 1 VW Radiologist Impression IMPRESSION: See below. EXAMINATION: XR CHEST PA OR AP 1 VW CLINICAL HISTORY: ASSOCIATED DIAGNOSIS: CHF ORDERING PROVIDER: RAON BENITEZ TECHNOLOGISTS NOTE: COMPARISON: 01/28/2025, CT chest dated August 23, 2024 FINDINGS/IMPRESSION: Lines, tubes, and devices: None. Chronic emphysematous and interstitial changes are again seen. Lucency again seen within the medial right and upper lung zones correspond to prominent blebs on prior CT. Peribronchial cuffing is seen. No significant effusion or pneumothorax. Heart size within normal limits. EKG: PROCEDURES Procedures MEDICAL DECISION MAKING AND PLAN OF CARE Medical Decision Making Differential includes not limited to COPD exacerbation, ACS, pneumonia, pneumothorax, pulmonary embolism Patient has scattered wheezes and decreased breath sounds this to be consistent with CHF. He did get Solu-Medrol and DuoNeb in the ambulance will give him another DuoNeb here he is not requiring any more oxygen not in any acute respiratory distress does not need immediate airway management Will get EKG troponin D-dimer chest x-ray Chest x-ray shows chronic labs empiric bronchial cuffing consistent with viral infection or COPD exacerbation. Does an elevated D-dimer so have to get a CTA as troponin is negative is not currently any chest pains I do not think we need a second 1 for him the rest of his labs unremarkable Lab Results Component Value Date/Time NA 144 02/03/2025 07:26 PM K 4.1 02/03/2025 07:26 PM CL 103 02/03/2025 07:26 PM CO2 30 (H) 02/03/2025 07:26 PM CA 9.2 02/03/2025 07:26 PM BUN 20 02/03/2025 07:26 PM CREAT 0.94 02/03/2025 07:26 PM GLUCOSE 155 (H) 02/03/2025 07:26 PM TOTALPROTEIN 6.9 02/03/2025 07:26 PM ALBUMIN 4.0 02/03/2025 07:26 PM BILITOTAL 0.2 02/03/2025 07:26 PM ALKPHOS 98 02/03/2025 07:26 PM AST 20 02/03/2025 07:26 PM ALT 11 02/03/2025 07:26 PM ANIONGAP 11 02/03/2025 07:26 PM Lab Results Component Value Date/Time WBC 13.0 (H) 02/03/2025 07:26 PM HGB 13.2 (L) 02/03/2025 07:26 PM HGBPOC 12.8 08/23/2024 02:49 PM HCT 40.6 02/03/2025 07:26 PM HCTPOC 38 08/23/2024 02:49 PM PLT 275 02/03/2025 07:26 PM MCV 88.8 02/03/2025 07:26 PM TROPONIN T, BASELINE 5TH GEN Date Value Ref Range Status 02/03/2025 <6 <=15 ng/L Final 01/28/2025 10 <=15 ng/L Final 12/07/2024 11 <=15 ng/L Final 07/12/2024 9 <=15 ng/L Final 07/01/2024 8 <=15 ng/L Final 06/17/2024 12 <=15 ng/L Final 06/06/2024 19 (H) <=15 ng/L Final 08/27/2022 8 <=15 ng/L Final 06/20/2022 25 (H) <=15 ng/L Final 06/06/2021 7 <=15 ng/L Final 12/23/2020 8 <=15 ng/L Final 06/29/2020 6 <=15 ng/L Final TROPONIN T, 2 HR 5TH GEN Date Value Ref Range Status 12/07/2024 9 <=15 ng/L Final 07/12/2024 8 <=15 ng/L Final 06/17/2024 10 <=15 ng/L Final 06/06/2024 19 (H) <=15 ng/L Final 08/28/2022 8 <=15 ng/L Final 06/20/2022 18 (H) <=15 ng/L Final 06/06/2021 <6 <=15 ng/L Final 12/23/2020 <6 <=15 ng/L Final 06/29/2020 6 <=15 ng/L Final DELTA 2HR TROPONIN T Date Value Ref Range Status 12/07/2024 -2 See Interp. Final 07/12/2024 -1 See Interp. Final 06/17/2024 -2 See Interp. Final 06/06/2024 0 See Interp. Final 08/28/2022 0 See Interp. Final 06/20/2022 -7 See Interp. Final 06/29/2020 0 See Interp. Final DELTA 6HR TROPONIN T Date Value Ref Range Status 12/07/2024 -2 See Interp. Final 06/17/2024 -3 See Interp. Final 06/06/2024 1 See Interp. Final TROPONIN T, 6 HR 5TH GEN Date Value Ref Range Status 12/07/2024 9 <=15 ng/L Final 06/17/2024 9 <=15 ng/L Final 06/06/2024 20 (H) <=15 ng/L Final 06/21/2022 13 <=15 ng/L Final 12/23/2020 <6 <=15 ng/L Final 07/03/2019 <6 <=15 ng/L Final CT did not show any substantial changes such as pulmonary embolism or acute pneumonia does have some chronic blebs and emphysema changes. He is not requiring any discs any supplemental oxygen is resting comfortably in his comfortable with being discharged. Will discharge him with home steroids for 5 days does not have any signs of infection purulent sputum fevers so I do not think antibiotics would be appropriate for him. Will have him follow-up with his PCP return with any new or worsening symptoms After speaking with and examining patient, reviewing today's visit, labs, xray and extensive nursesnotes- I feel patients complaints are not acute nor life threatening. The patient's evaluation, exam, findings and plan of care were discussed with the patient here in the emergency department. I have discussed that this focused care is based on an urgent and emergent basis and in no way representscomplete or continued care of their entire health conditions and that follow up care is an important part of the care and plan they have received here in the emergency department. They have voiced understanding and are comfortable with the plan of care. Amount and/or Complexity of Data Reviewed External Data Reviewed: labs and notes. Labs: ordered. Decision-making details documented in ED Course. Radiology: ordered. Decision-making details documented in ED Course. ECG/medicine tests: ordered and independent interpretation performed. Risk Prescription drug management. Clinical Scoring & Consults Medications Administered During the ED Stay from 02/03/2025 1914 to 02/03/20252122 Date/Time Order Dose Route Action 02/03/2025 193 CDT ipratropium-albuteroL (DUONEB) 0.5 mg-3 mg(2.5 mg base)/3 mL inhalation solution 3 mL 3 mL Inhalation Given 02/03/20252034 CDT iopamidoL (ISOVUE-300) 61% injection (single-use vial) 100 mL 100 mL IV Contrast Given 02/03/20252043 CDT hydrOXYzine HCL (ATARAX) tablet 25 mg 25 mg Oral Given . New Prescriptions for this Encounter PREDNISONE (DELTASONE) 20 MG TABLET Take 1 Tablet (20 mg) by mouth 2 times daily with meals for 5 days. LAST VS BP: 96/56 (02/03/252029), Heart Rate: 91 bpm (02/03/252029), Resp: 21 (02/03/252029), Pulse: 94 (02/03/252029), Temp: 97.9 ??F (36.6 ??C) (02/03/251912), Temp src: Tympanic (02/03/251912), SpO2: 94 % (02/03/252029) CLINICAL IMPRESSION Diagnosis Diagnosis Comment Added By Time Added Dyspnea, unspecified type [R06.00] Aron Benitez MD 02/03/2025 9:18 PM DISPOSITION, EDUCATION AND MEDICATION RECONCILIATION Medications reconciled. See after visit summary for patient education on discharged patients. ED Disposition ED Disposition Discharge Condition Stable User Aron Benitez MD Date/Time ThuFeb 03, 2025 9:17 PM Comment -- ATTESTATION STATEMENTS * Lizette Contreras RCP - 02/03/2025 7:14 PM CDT EKG completed. Results given to Dr. Benitez and scanned into [facility]. documented in this encounter Miscellaneous Notes * Gen AI MARIZOL - GENERATIVE AI HANDOFF NOTE - 02/04/2025 11:42 PM CDT ## ER_course: ## # DIAGNOSIS: Dyspnea, unspecified type. The patient, a 64-year-old male with a history of hepatitis C, CHF, and chronic emphysema, presented with increased shortness of breath over the past two days. He uses 3L of oxygen at home but did not increase his oxygen use despite worsening symptoms. No chest pain, cough, or fever was reported. # During the ER visit, the patient received Duoneb and Solu-Medrol in the ambulance and another dose of Duoneb in the ER. He was not in acute respiratory distress and did not require additional oxygen. # Abnormal findings included elevated WBC (13.0), elevated glucose (155), elevated D-dimer (1.31), and elevated PROBNP (286). CTA chest showed bronchiolitis, patchy ground-glass opacifications in the right lower lobe, and chronic emphysematous changes with prominent blebs. Chest X-ray showed chronic emphysematous and interstitial changes with peribronchial cuffing. # Differential diagnoses considered included COPD exacerbation, ACS, pneumonia, pneumothorax, and pulmonary embolism. However, no acute conditions were identified, and the patient was deemed stable for discharge. ## Follow_up_orders: ## # The patient was prescribed Prednisone 20 mg to be taken twice daily with meals for 5 days. # Follow-up with the primary care provider is recommended, and the patient was advised to return if new or worsening symptoms occur. ## Home_Situation: ## # No specific factors impairing follow-up care were noted in the ER documentation. documented in this encounter Plan of Treatment Upcoming Encounters Date Type Department Care Team (Late st Contact Info) Description 02/08/2025 2:40 PM CDT Office Visit [facility] [address] [phone] Mala Rhodes FNP [address] [phone] 02/28/2025 3:20 PM CDT Office Visit [address] [phone] Jose Juan Self MD [address] [place] [address] 04/13/2025 4:20 PM PC TECH Office Visit [facility] [address] [place] [phone] Jose Juan Self MD [address] [place] [address] 07/14/2025 8:00 AM PC TECH Office Visit [facility] [address] [place] [phone] Mala Rhodes FNP [address] [place] [phone] documented as of this encounter Procedures Procedure Name Priority Date/Time Associated Diagnosis Comments CTA CHEST W AND/OR WO CONTRAST Stat 02/03/2025 8:34 PM CDT XR CHEST PA OR AP 1 VW Stat 7:34 PM CDT COVID-19 ANTIGEN Stat 02/03/2025 7:30 PM CDT INFLUENZA VIRUS A AND B, ANTIGEN DETECTION Stat 02/03/2025 7:30 PM CDT TROPONIN BASELINE, 5TH GEN Stat 02/03/2025 7:26 PM CDT CBC WITH DIFFERENTIAL Stat 02/03/2025 7:26 PM CDT D-DIMER Stat 02/03/2025 7:26 PM CDT BRAIN NATRIURETIC PEPTIDE, BNP OR PROBNP Stat 02/03/2025 7:26 PM CDT MAGNESIUM LEVEL Stat 02/03/2025 7:26 PM CDT COMPREHENSIVE METABOLIC PANEL Stat 02/03/2025 7:26 PM CDT documented in this encounter Results * CTA CHEST W AND/OR WO CONTRAST (02/03/2025 8:34 PM CDT) Anatomical Region Laterality Modality Chest Computed Tomogra phy 02/03/2025 8:07 PM CDT Impressions 02/03/2025 9:04 PM CDT IMPRESSION: Motion degraded exam. 1. No PE identified. PE cannot be evaluated beyond the lobar level due to the limitations above. 2. Bronchiolitis. Some patchy groundglass airspace opacifications in the right lower lobe. 3. Chronic emphysematous changes and prominent blebs seen within the lung apices. MACRO: None Narrative 02/03/2025 9:04 PM CDT EXAMINATION: CTA CHEST W AND/OR WO CONTRAST CLINICAL HISTORY: ASSOCIATED DIAGNOSIS: Pulmonary embolism (PE) suspected, low to intermediate prob, positive D-dimer ORDERING PROVIDER: ARON BENITEZ TECHNOLOGISTS NOTE: COMPARISON: August 2024 TECHNIQUE: Axial images of the chest were obtained from above the lung apices through the level of the adrenal glands during the bolus administration of intravenous contrast. Multiplanar and 3D maximum intensity projection reformulation's were created from the raw CT data which were interpreted in conjunction with the axial images to render the findings listed below. Before infusion of intravenous contrast, radiology personnel investigated the possibility of an allergic history and of any history of reaction to iodinated contrast material. INTRA-PROCEDURE MEDS: IOPAMIDOL 61 % INTRAVENOUS SOLUTION (SINGLE USE VIAL) Given:100 mL FINDINGS: Exam Quality: Overall exam quality is satisfactory. Pulmonary arterial enhancement is suboptimal, the breath hold is suboptimal, and there are significant artifacts impacting image quality. Pulmonary Arteries: There are no filling defects within the pulmonary arterial system to suggest pulmonary embolus, to the lobar level. Cardiovasculature: The heart is normal in size. Mild coronary calcifications are noted. Mediastinum/Pericardium: Unremarkable Pleura: Unremarkable Central Airways: Peribronchial wall thickening and mucus plugging most pronounced within the right lower lobe. Low lung volumes. Lungs: Some patchy groundglass airspace opacification seen within the lobe. Chronic emphysematous changes. Large blebs are seen as well. Nodules: Granulomas. Motion limits assessment. Lymph Nodes: No thoracic lymphadenopathy is evident. Visualized musculoskeletal structures: No acute fracture or destructive osseous lesion is identified. Chronic degenerative changes. Chronic mild wedging of L1 and an multilevel mild wedging again seen within the mid thoracic spine. Vertebral body heights and alignment are stable. Included images of the upper abdomen: Unremarkable Procedure Note Rudy Black MD - 02/03/2025 EXAMINATION: CTA CHEST W AND/OR WO CONTRAST CLINICAL HISTORY: ASSOCIATED DIAGNOSIS: Pulmonary embolism (PE) suspected, low to intermediate prob, positive D-dimer ORDERING PROVIDER: ARON BENITEZ TECHNOLOGISTS NOTE: COMPARISON: August 2024 TECHNIQUE: Axial images of the chest were obtained from above the lung apices through the level of the adrenal glands during the bolus administration of intravenous contrast. Multiplanar and 3D maximum intensity projection reformulation's were created from the raw CT data which were interpreted in conjunction with the axial images to render the findings listed below. Before infusion of intravenous contrast, radiology personnel investigated the possibility of an allergic history and of any history of reaction to iodinated contrast material. INTRA-PROCEDURE MEDS: IOPAMIDOL 61 % INTRAVENOUS SOLUTION (SINGLE USE VIAL) Given:100 mL FINDINGS: Exam Quality: Overall exam quality is satisfactory. Pulmonary arterial enhancement is suboptimal, the breath hold is suboptimal, and there are significant artifacts impacting image quality. Pulmonary Arteries: There are no filling defects within the pulmonary arterial system to suggest pulmonary embolus, to the lobar level. Cardiovasculature: The heart is normal in size. Mild coronary calcifications are noted. Mediastinum/Pericardium: Unremarkable Pleura: Unremarkable Central Airways: Peribronchial wall thickening and mucus plugging most pronounced within the right lower lobe. Low lung volumes. Lungs: Some patchy groundglass airspace opacification seen within the lobe. Chronic emphysematous changes. Large blebs are seen as well. Nodules: Granulomas. Motion limits assessment. Lymph Nodes: No thoracic lymphadenopathy is evident. Visualized musculoskeletal structures: No acute fracture or destructive osseous lesion is identified. Chronic degenerative changes. Chronic mild wedging of L1 and an multilevel mild wedging again seen within the mid thoracic spine. Vertebral body heights and alignment are stable. Included images of the upper abdomen: Unremarkable IMPRESSION: Motion degraded exam. 1. No PE identified. PE cannot be evaluated beyond the lobar level due to the limitations above. 2. Bronchiolitis. Some patchy groundglass airspace opacifications in the right lower lobe. 3. Chronic emphysematous changes and prominent blebs seen within the lung apices. MACRO: None Aron Benitez MD CT ORDERABLES Final Result * XR CHEST PA OR AP 1 VW (02/03/2025 7:34 PM CDT) Anatomical Region Laterality Modality Chest Computed Radiogr aphy 02/03/2025 7:35 PM CDT Impressions 02/03/2025 8:06 PM CDT IMPRESSION: See below. EXAMINATION: XR CHEST PA OR AP 1 VW CLINICAL HISTORY: ASSOCIATED DIAGNOSIS: CHF ORDERING PROVIDER: ARON DALTON NOTE: COMPARISON: 01/28/2025, CT chest dated August 23, 2024 FINDINGS/IMPRESSION: Lines, tubes, and devices: None. Chronic emphysematous and interstitial changes are again seen. Lucency again seen within the medial right and upper lung zones correspond to prominent blebs on prior CT. Peribronchial cuffing is seen. No significant effusion or pneumothorax. Heart size within normal limits. Narrative Procedure Note Rudy Black MD - 02/03/2025 IMPRESSION: See below. EXAMINATION: XR CHEST PA OR AP 1 VW CLINICAL HISTORY: ASSOCIATED DIAGNOSIS: CHF ORDERING PROVIDER: ARON DALTON NOTE: COMPARISON: 01/28/2025, CT chest dated August 23, 2024 FINDINGS/IMPRESSION: Lines, tubes, and devices: None. Chronic emphysematous and interstitial changes are again seen. Lucency again seen within the medial right and upper lung zones correspond to prominent blebs on prior CT. Peribronchial cuffing is seen. No significant effusion or pneumothorax. Heart size within normal limits. Aron Benitez MD DIAGNOSTIC IMAGING OR DERABLES Final Result * INFLUENZA VIRUS A AND B, ANTIGEN DETECTION (02/03/2025 7:30 PM CDT) INFLUENZA A AG NOT DETECTED Not Detected 02/03/2025 7:55 PM CDT [facility] INFLUENZA B AG NOT DETECTED Not Detected 02/03/2025 7:55 PM CDT [facility] Upper Respiratory ENTIRE NASOPHARYNX / Unknown Collection / Unknown 02/03/2025 7:30 PM CDT 02/03/2025 7:36 PM CDT Narrative [facility] - 02/03/2025 7:55 PM CDT Negative results do not rule out infection. If clinically indicated, consider PCR testing which is more sensitive than antigen testing. If PCR testing is desired, consult with your local laboratory as sample recollection may be required. Aron Benitez MD MICROBIOLOGY - [facility] ORDERABLES Final Result [facility] CLIA # [id number] [address] [place] [address] [phone] * COVID-19 ANTIGEN (02/03/2025 7:30 PM CDT) COVID-19 ANTIGEN Presumptive Negative Presumptive Negative 02/03/2025 7:56 PM CDT [facility] Upper Respiratory ANTERIOR NARES SWAB / Unknown Collection / Unknown 02/03/2025 7:30 PM CDT 02/03/2025 7:36 PM CDT Narrative [facility] - 02/03/2025 7:56 PM CDT Yesica SARS antigen test has been authorized by FDA under an emergency use authorization (EUA) and has been authorized only for the detection of proteins from SARS-CoV-2 and influenza, not for any other viruses or pathogens. Yesica SARS Antigen HARDEEP is intended for the simultaneous qualitative detection and differentiation of nucleocapsid protein antigen from SARS-CoV-2 directly from nasopharyngeal (MEDICAL [employer]DEL [employer]ER) and nasal (NS) swab specimens collected from individuals who are suspected of respiratory viral infection consistent with COVID-19 by their healthcare provider within the first five (5) days of symptom onset when tested at least twice over three days with at least 48 hours between tests, or from individuals without symptoms or other epidemiological reasons to suspect COVID-19 when tested at least three times over five days with at least 48 hours between tests. This test is only authorized for the duration of the declaration that circumstances exist justifying the authorization of emergency use of in vitro diagnostics for detection and/or diagnosis of the virus that causes COVID-19 under Section 564(b)(1) of the Act, 21 U.S.C. 360bbb-3(b)(1), unless the authorization is terminated or revoked sooner. Negative results should be treated as presumptive and confirmed with a molecular assay, if necessary for patient care. Serial testing should be performed in individuals with negative results at least twice over three days (with 48 hours between tests) for symptomatic individuals or from individuals without symptoms or other epidemiological reasons to suspect COVID-19 when tested at least three times over five days with at least 48 hours between tests. Aron Benitez MD MICROBIOLOGY - [facility] ORDERABLES Final Result [facility] CLIA # [id number] [address] [place] [phone] * (ABNORMAL) D-DIMER (02/03/2025 7:26 PM CDT) D-DIMER QUANT 1.31(H) <0.50 ug/mL FEU 02/03/2025 7:53 PM CDT [facility] Blood BLOOD SPECIMEN / Unknown Collection / Unknown 02/03/2025 7:26 PM CDT 02/03/2025 7:35 PM CDT [facility] - 02/03/2025 7:53 PM CDT D-Dimer assay cutoff value for exclusion of DVT and/or PE is <0.50 ug/mL FEU. As D-Dimer levels increase naturally with age, age stratification for patients over 50 is potentially more appropriate in determining whether a patient should undergo further evaluation for DVT and/or PE than a general cutoff of 0.50 ug/mL FEU. Clinical consideration is recommended. Age Stratified Cutoff Values: 50-60 years: 0.50-0.60 ug/mL FEU 61-70 years: 0.61-0.70 ug/mL FEU 71-80 years: 0.71-0.80 ug/mL FEU Aron Benitez MD HEMATOLOGY ORDERABLES Final Result Performing Organization Address City/[facility]/ZIP Co de Phone Number [facility] CLIA # [id number] [address] [place] [phone] * MAGNESIUM LEVEL (02/03/2025 7:26 PM CDT) MAGNESIUM 2.3 1.6 - 2.4 mg/dL 02/03/2025 7:57 PM CDT [facility] Blood BLOOD SPECIMEN / Unknown Collection / Unknown 02/03/2025 7:26 PM CDT 02/03/2025 7:35 PM CDT Aron Benitez MD CHEMISTRY ORDERABLES Final Result Performing Organization Address [facility] Co de Phone Number [facility] CLIA # [id number] [address] [place] [phone] * TROPONIN BASELINE, 5TH GEN (02/03/2025 7:26 PM CDT) TROPONIN T, BASELINE 5TH GEN <6 <=15 ng/L 02/03/2025 7:57 PM CDT [facility] Blood BLOOD SPECIMEN / Unknown Collection / Unknown 02/03/2025 7:26 PM CDT 02/03/2025 7:35 PM CDT Narrative [facility] - 02/03/2025 7:57 PM CDT Troponin Undetectable Aron Benitez MD CHEMISTRY ORDERABLES Final Result Performing Organization Address [facility]/ZIP Co de Phone Number [facility] CLIA # [id number] [address] [place] [phone] * (ABNORMAL) BRAIN NATRIURETIC PEPTIDE, BNP OR PROBNP (02/03/2025 7:26 PM CDT) PROBNP, N TERMINAL 286(H) 0 - 125 pg/mL 02/03/2025 7:57 PM CDT [facility] Comment: INTERPRETIVE COMMENT based on diagnosis: Diagnostic NT pro-BNP cutoffs for Heart Failure in the absence of renal failure is suggested for the following ranges <75 years: <125 pg/mL >=75 years: <450 pg/mL Exclusionary rule out cut-point for Acute Decompensated Heart Failure(ADHF) All ages: <300 pg/mL Diagnostic NT pro-BNP cutoffs for Acute Decompensated Heart Failure(ADHF) in the absence of renal failure is suggested for the following ages <50 years: > 450 pg/mL 50-75 years: > 900 pg/mL >75 years: >1800 pg/mL Blood BLOOD SPECIMEN / Unknown Collection / Unknown 02/03/2025 7:26 PM CDT 02/03/2025 7:35 PM CDT us Aron Benitez MD CHEMISTRY ORDERABLES Final Result [facility] CLIA # [id number] [address] [place] [phone] * (ABNORMAL) COMPREHENSIVE METABOLIC PANEL (02/03/2025 7:26 PM CDT) SODIUM 144 136 - 145 mmol/L 02/03/2025 7:57 PM CDT [facility] POTASSIUM 4.1 3.5 - 5.1 mmol/L 02/03/2025 7:57 PM CDT [facility] CHLORIDE 103 98 - 107 mmol/L 02/03/2025 7:57 PM T [facility] CO2 30(H) 22 - 29 mmol/L 02/03/2025 7:57 PM CDT [facility] CALCIUM 9.2 8.8 - 10.2 mg/dL 02/03/2025 7:57 PM T [facility] BUN 20 8 - 23 mg/dL 02/03/2025 7:57 PM T [facility] CREATININE 0.94 0.67 - 1.17 mg/dL 02/03/2025 7:57 PM [facility] GLUCOSE 155(H) 74 - 99 mg/dL 02/03/2025 7:57 PM [facility] TOTAL PROTEIN 6.9 6.6 - 8.7 g/dL 02/03/2025 7:57 PM [facility] ALBUMIN 4.0 3.5 - 5.2 g/dL 02/03/2025 7:57 PM [facility] BILIRUBIN TOTAL 0.2 0.0 - 1.2 mg/dL 02/03/2025 7:57 PM [facility] ALKALINE PHOSPHATASE 98 40 - 129 U/L 02/03/2025 7:57 PM [facility] AST 20 0 - 50 U/L 02/03/2025 7:57 PM [facility] ALT 11 0 - 50 U/L 02/03/2025 7:57 PM [facility] GFR >60 >=60 mL/min/1.7 3 sq meter 02/03/2025 7:57 PM [facility] Comment:eGFR calculated with 2020 CKD-EPI equation. Vegetarian diet, extremely high or low muscle mass, and may affect results. Cystatin C with Glomerular Filtration Rate is a suitable alternative for these patients. ANION GAP 11 5 - 20 mmol/L 02/03/2025 7:57 PM [facility] Blood BLOOD SPECIMEN / Unknown Collection / Unknown 02/03/2025 7:26 PM CDT 02/03/2025 7:35 PM CDT Aron Benitez MD CHEMISTRY ORDERABLES Final Result [facility] CLIA # [id number] [address] [place] [phone] * (ABNORMAL) CBC WITH DIFFERENTIAL (02/03/2025 7:26 PM CDT) WBC 13.0(H) 4.2 - 9.1 K/uL 02/03/2025 7:40 PM CDT [facility] RBC 4.57(L) 4.63 - 6.08 M/uL 02/03/2025 7:40 PM [facility] HEMOGLOBIN 13.2(L) 13.7 - 17.5 g/dL 02/03/2025 7:40 PM [facility] HEMATOCRIT 40.6 40.1 - 51.0 % 02/03/2025 7:40 PM [facility] MCV 88.8 79.0 - 92.2 fL 02/03/2025 7:40 PM [facility] MCH 28.9 25.7 - 32.2 pg 02/03/2025 7:40 PM [facility] MCHC 32.5 32.3 - 36.5 g/dL 02/03/2025 7:40 PM [facility] RDW 15.3(H) 11.0 - 14.5 % 02/03/2025 7:40 PM [facility] RDW-STDEV 49.5 36.9 - 56.9 fL 02/03/2025 7:40 PM [facility] PLATELETS 275 130 - 400 K/uL 02/03/2025 7:40 PM [facility] MPV 8.5(L) 10.0 - 14.8 fL 02/03/2025 7:40 PM [facility] NEUTROPHILS 78(H) 34 - 68 % 02/03/2025 7:40 PM [facility] LYMPHOCYTES 15(L) 22 - 53 % 02/03/2025 7:40 PM [facility] MONOCYTES 6 5 - 12 % 02/03/2025 7:40 PM [facility] EOSINOPHILS 0(L) 1 - 7 % 02/03/2025 7:40 PM [facility] BASOPHILS 0 0 - 1 % 02/03/2025 7:40 PM [facility] IMMATURE GRANULOCYTES 1 % 02/03/2025 7:40 PM [facility] NEUTROPHIL ABSOLUTE 10.14(H) 1.78 - 5.38 K/uL 02/03/2025 7:40 PM [facility] LYMPHOCYTE ABSOLUTE 1.96 1.20 - 3.40 K/uL 02/03/2025 7:40 PM CDT [facility] MONOCYTE ABSOLUTE 0.80 0.30 - 0.82 K/uL 02/03/2025 7:40 PM CDT [facility] EOSINOPHIL ABSOLUTE 0.02(L) 0.04 - 0.54 K/uL 02/03/2025 7:40 PM CDT [facility] BASOPHILS ABSOLUTE 0.03 0.01 - 0.08 K/uL 02/03/2025 7:40 PM CDT [facility] IMMATURE GRANULOCYTES ABSOLUTE 0.08 K/uL 02/03/2025 7:40 PM CDT [facility] Blood BLOOD SPECIMEN / Unknown Collection / Unknown 02/03/2025 7:26 PM CDT 02/03/2025 7:35 PM CDT us Aron Benitez MD HEMATOLOGY ORDERABLES Final Result [id number] [address] [place] [phone] documented in this encounter Visit Diagnoses Diagnosis Dyspnea, unspecified type- Primary documented in this encounter Administered Medications Inactive Administered Medications - up to 3 most recent administrations Medication Order MAR Action Action Date Dose Rate Site hydrOXYzine HCL (ATARAX) tablet 25 mg 25 mg, Oral, ONE TIME ONLY, 1 dose, On Thu02/03/25 at 2044, Routine Given 02/03/2025 8:44 PM CDT 25 mg iopamidoL (ISOVUE-300) 61% injection (single-use vial) 100 mL 100 mL, IV, INTRA-PROCEDURE ONCE, 1 dose, Starting on Thu02/03/25 at 2031, Until Thu02/03/25 at 9, Routine iopamidoL (ISOVUE-300) 61% injection (single-use vial) 100 mL 100 mL, IV, INTRA-PROCEDURE ONCE, 1 dose, Starting on Thu02/03/25 at 2032, Until Thu02/03/25 at 2034, Routine Contrast Given 02/03/2025 8:35 PM CDT 100 mL ipratropium-albuteroL (DUONEB) 0.5 mg-3 mg(2.5 mg base)/3 mL inhalation solution 3 mL 3 mL, Inhalation, ONE TIME ONLY RESPIRATORY, 1 dose, On Thu02/03/25 at 1930, Routine Given 02/03/2025 7:33 PM CDT 3 mL documented in this encounter Active and Recently Administered Medications Times are shown in CDT. Scheduled Medication Order 02/01/2025 02/02/2025 02/03/2025 hydrOXYzine HCL (ATARAX) tablet 25 mg (COMPLETED) 25 mg, Oral, ONE TIME ONLY, 1 dose, On Thu02/03/25 at 204, Routine 2043 (Given - Provid er: Chelsey Grimaldo RN) iopamidoL (ISOVUE-300) 61% injection (single-use vial) 100 mL 100 mL, IV, INTRA-PROCEDURE ONCE, 1 dose, Starting on Thu02/03/25 at 2031, Until Thu02/03/25 at 2338, Routine iopamidoL (ISOVUE-300) 61% injection (single-use vial) 100 mL (COMPLETED) 100 mL, IV, INTRA-PROCEDURE ONCE, 1 dose, Starting on Thu02/03/25 at 2032, Until Thu02/03/25 at 2034, Routine 2034 (Contrast Given - Provider: Nish Medina RT) ipratropium-albuteroL (DUONEB) 0.5 mg-3 mg(2.5 mg base)/3 mL inhalation solution 3 mL (COMPLETED) 3 mL, Inhalation, ONE TIME ONLY RESPIRATORY, 1 dose, On Thu02/03/25 at 1930, Routine 1932 (Given - Provid er: Lizette Contreras RCP) documented in this encounter Additional Health Concerns Infection Onset Date Last Indicated Resolved Time R/O COVID-19 02/03/2025 02/03/2025 02/03/2025 7:56 PM CDT documented as of this encounter Care Teams Rn Clinical Relationship Specialty Start Date End Date Jose Juan Self MD [address] [facility] [address] [place] [id number] PCP - General Family Practice 01/11/25 documented as of this encounter
[2025-02-06 15:50] VITALS: BP 162/71; PULSE 83; RESP 16; TEMP 36.6; O2SAT 92; BMI 25.8
--- NOTE | 2025-02-06 15:54 | W.ED.SOB ---
HPI - SOB/Dyspnea General: Chief Complaint: Shortness of Breath/Dyspnea Stated Complaint: SOB - COPD - CHF Time Seen by Provider: 02/06/25 15:45 Source: patient and EMS Mode of arrival: EMS Limitations: no limitations History of Present Illness: HPI Narrative: Patient is a 64-year-old male who presents to ED today via EMS for evaluation of dyspnea. EMS states he was in bad shape when they arrived-stating he was tachypneic with significant accessory muscle use. He was reportedly satting in the 70s. Patient states he normally wears 3 L of oxygen. EMS states they administered 2 albuterol and 1 DuoNeb treatment and route and upon arrival patient is satting 94% on 2.5 L. Patient states he has not been ill recently-no fevers or URI-like symptoms. He states he has a history of COPD/emphysema. He continues to vape and smokes cigarettes. He reportedly has a history of congestive heart failure although I do not see any medications that would support this. We do not have much documentation on patient from our end. 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 He states sometimes he will get like this when he is anxious and has panic attacks. Patient has not noticed any leg swelling or weight gain. MD elicited complaint: shortness of breath Pertinent past history: COPD Onset (ago): day(s) Timing: constant Severity: moderate Exacerbating factors: exertion Relieving factors: oxygen, rest and bronchodilators Known history of: COPD Associated symptoms: Reports chest congestion; Deny abdominal pain, chest pain, extremity pain, fever(s), hemoptysis, lightheadedness, nausea, orthopnea, palpitations, syncope or vomiting Treatment prior to arrival: oxygen and bronchodilator Related Data Home Medications ?Medication ?Instructions ?Recorded ?Confirmed albuterol sulfate 90 mcg/actuation 4 puff inhalation Q4H PRN 12/28/24 12/28/24 aerosol inhaler Shortness Of Breath Or Wheezing amlodipine 10 mg tablet 10 mg PO DAILY 12/28/24 12/28/24 bupropion HCl 150 mg tablet,12 hr 150 mg PO BID 12/28/24 12/28/24 sustained-release hydroxyzine pamoate 25 mg capsule 25 mg PO TID 12/28/24 12/28/24 ibuprofen 200 mg tablet (Advil) 800 mg PO Q6H PRN Fever Or Pain 12/28/24 12/28/24 lisinopril 40 mg tablet 40 mg PO DAILY 12/28/24 12/28/24 tiotropium bromide 2.5 2 puff inhalation DAILY 12/28/24 12/28/24 mcg/actuation mist for inhalation (Spiriva Respimat) Previous Rx's ?Medication ?Instructions ?Recorded lorazepam 2 mg tablet (Ativan) 2 mg sublingual TID PRN anxiety 12/28/24 #10 tabs amoxicillin 875 mg-potassium 1 tab PO BID #14 tabs 02/06/25 clavulanate 125 mg tablet azithromycin 250 mg tablet See Rx Instructions PO .COMPLEX #6 02/06/25 tabs prednisone 10 mg tablet 10 mg PO DAILY 5 days #14 tabs 02/06/25 Allergies Allergy/AdvReac Type Severity Reaction Status Date / Time No Known Allergies Allergy Verified 12/28/24 09:30 Review of Systems Const: Denies: fever(s), chills, body aches, fatigue or malaise Card: Reports: dyspnea on exertion (chronic); Denies: chest pain, palpitations, irregular heart rhythm, edema, swelling of feet/ankles, lightheadedness, syncope, pre-syncope, orthopnea, leg pain with exertion or acrocyanosis Resp: Reports: dyspnea and chest congestion; Denies: productive cough, non-productive cough, wheezing or hemoptysis GI: Denies: abdominal pain, nausea, vomiting or diarrhea : Denies: flank pain, difficulty urinating, dysuria, urinary frequency, urinary urgency or urinary hesitancy Musc: Denies: neck pain, back pain, extremity pain, extremity swelling, joint pain or joint swelling Skin/Breast: Denies: rash Neuro: Denies: headache(s), numbness in extremities, weakness in extremities or sensory changes Psych: Reports: anxiety Physical Exam Const: COMMON NORMALS: average body habitus, patient oriented x3, no limitations, alert and well nourished GENERAL APPEARANCE: cooperative ORIENTATION/CONSCIOUSNESS: Yes awake, Yes oriented to person, Yes oriented to place and Yes oriented to time HENMT: COMMON NORMALS: normocephalic and atraumatic HEAD & SCALP: normal to inspection, normocephalic and atraumatic Neck/C-Spine: COMMON NORMALS: full ROM, no lymphadenopathy, supple and no meningeal signs Chest: COMMONS NORMALS: normal inspection of the chest and normal palpation of entire chest wall Resp: EFFORT & INSPECTION: Yes uses accessory muscles (mild) AUSCULTATION: other (course breath sounds throughout) OTHER: pt is satting 94% on RA on 2.5L during my examination Cardio: COMMON NORMALS: regular rate and regular rhythm RATE: regular rate RHYTHM: regular rhythm GI: COMMON NORMALS: Normal to inspection, nondistended, normoactive bowel sounds present, Soft to palpation, non-tender, No hepatosplenomegaly present and no masses PALPATION: Yes Soft to palpation and Yes No hepatosplenomegaly present : COMMON NORMALS: Yes no CVA tenderness BLADDER/KIDNEY EXAM: Yes no CVA tenderness Back/Pelvis: COMMON NORMALS: no CVA tenderness and thoracic and lumbar spine normal to inspection Extremity: COMMON NORMALS: normal to inspection, capillary refill normal, no clubbing, cyanosis or edema, no calf tenderness and no pedal edema GENERAL: Yes normal exam except as noted Neuro: SINDY COMA SCALE: document GCS findings Sindy coma scale eye opening: Spontaneous Sindy coma scale verbal response: Orientated Sindy coma scale motor response: Obey commands Sindy coma scale total score: 15 COMMON NORMALS: patient oriented x3, moves all extremities, no focal motor deficits and no sensory deficits noted SENSORIUM/ORIENTATION: Yes alert, Yes oriented to person, Yes oriented to place and Yes oriented to time MENINGEAL SIGNS: Yes no meningeal signs Skin: COMMON NORMALS: no rashes or lesions noted GENERAL SKIN EXAM: no rashes or lesions noted Course Vital Signs: Vital signs: Vital Signs Temperature 97.9 F 02/06/25 15:50 Pulse Rate 59 L 02/06/25 17:00 Respiratory Rate 16 02/06/25 15:50 Blood Pressure 146/100 02/06/25 17:00 Pulse Oximetry 98 02/06/25 17:00 Oxygen Delivery Me thod Nasal Cannula 02/06/25 16:23 Oxygen Flow Rate 3 02/06/25 16:23 MDM - SOB/Dyspnea Medical Decision Making Patient has continued to sat at 94% on 2.5 L. He states he chronically wears 3L continuously. Patient states he feels much better and would like to go home. His blood work here overall is nonactionable. His baseline troponin is normal. Two EKGs conducted here in the emergency department showing no ischemic changes.BNP is normal. Procalcitonin is normal. CMP is pending but he does not want to stay any longer. CXR stable when compared to previous. He will be allowed discharge with treatment for COPD exacerbation. Return precautions discussed. Medical Records I reviewed the patient's medical records. Lab Data I reviewed the patient's lab results. 02/06/25 16:32 02/06/25 16:32 Labs/Radiology: Radiology Impressions Chest X-Ray 02/06/25 15:55 IMPRESSION: Stable abnormal chest. Laboratory Results WBC 10.61 10^3/uL (3.29-11.43) 02/06/25 16:32 RBC 5.24 10^6/uL (3.85-5.65) 02/06/25 16:32 Hgb 15.10 g/dL (11.27-16.99) 02/06/25 16:32 Hct 48.6 % (37-53) 02/06/25 16:32 MCV 92.7 fl (82-101) 02/06/25 16:32 MCH 28.8 pg (27-33) 02/06/25 16:32 MCHC 31.1 g/dL (30-55) 02/06/25 16:32 RDW 15.0 % (12.1-15.1) 02/06/25 16:32 Plt Count 305 10^3/cmm (157-399) 02/06/25 16:32 MPV 8.4 fL (7.4-10.4) 02/06/25 16:32 Neut % (Auto) 66.9 % 02/06/25 16:32 Lymph % (Auto) 22.3 % 02/06/25 16:32 [place] % (Auto) 8.3 % 02/06/25 16:32 Eos % (Auto) 1.2 % 02/06/25 16:32 Baso % (Auto) 0.4 % 02/06/25 16:32 Neut # (Auto) 7.09 10^3/uL (1.8-7.7) 02/06/25 16:32 Lymph # (Auto) 2.4 10^3/uL (0.8-4.8) 02/06/25 16:32 [place] # (Auto) 0.9 10^3/uL (0.2-0.9) 02/06/25 16:32 Eos # (Auto) 0.1 10^3/uL (0.0-0.8) 02/06/25 16:32 Baso # (Auto) 0.0 10^3/uL (0.0-0.1) 02/06/25 16:32 Nucleated RBC % (auto) 0 % 02/06/25 16:32 Nucleated RBCs # 0.0 /100WBC 02/06/25 16:32 Troponin T Baseline < 6 ng/L (0-15) 02/06/25 16:32 NT-Pro-B Natriuret Pep 85 pg/mL (0-125) 02/06/25 16:32 Procalcitonin 0.06 ng/mL (0-0.5) 02/06/25 16:32 All radiology interpretation(s) finalized by discharge Discharge Plan Discharge Patient Disposition: Home Clinical Impression: Acute exacerbation of chronic obstructive airways disease Condition: Stable Prescriptions: New prednisone 10 mg tablet 10 mg PO DAILY 5 Days Qty: 14 0RF Rx Instructions: Take 4 tabs on day 1-2, 3 tabs on day 3, 2 tabs on day 4, 1 tab on day 5 azithromycin 250 mg tablet See Rx Instructions .ROUTE .COMPLEX Qty: 6 0RF Rx Instructions: take 500 mg today (day 1), then 250 mg for 4 days (days 2-5) amoxicillin-pot clavulanate 875-125 mg tablet 1 tab PO BID Qty: 14 0RF No Action bupropion HCl 150 mg tablet sustained-release 12 hr 150 mg PO BID amlodipine 10 mg tablet 10 mg PO DAILY albuterol sulfate 90 mcg/actuation HFA aerosol inhaler 4 puff INHALATION Q4H PRN (Reason: Shortness Of Breath Or Wheezing) lisinopril 40 mg tablet 40 mg PO DAILY hydroxyzine pamoate 25 mg capsule 25 mg PO TID Spiriva Respimat 2.5 mcg/actuation mist 2 puff INHALATION DAILY ibuprofen [Advil] 200 mg Tablet 800 mg PO Q6H PRN (Reason: Fever Or Pain) lorazepam [Ativan] 2 mg tablet 2 mg sublingual TID PRN (Reason: anxiety) Qty: 10 0RF Discharge Orders: Discharge ED (Routine); Ordered 02/06/25 Ordered By: Candace Heredia Patient Instructions: Patient Portal & Alyssa Instructions Activity Restrictions/Additional Instructions: As we discussed, we called in medications to [facility] pharmacy for antibiotics and steroids to help with your COPD exacerbation. I have placed a case management referral to get you set up with pulmonology. Please follow-up with primary care this week for reevaluation. You may return to the emergency department at anytime for any further concerns you may have. Print Language: Tongan Coding Level of Care Code ED Web Site Manager for [facility]
--- NOTE | 2025-02-06 15:55 | XR_ITS ---
WS: [id number] XR chest 1V portable [id number] REASON FOR EXAM: sob FINDINGS: The chest is stable compared to 12/28/2024. Moderate tortuosity and mild ectasia of the thoracic aorta. Normal heart size. Large bullous formation in the right upper lung and in the right midlung extending medially across the midline. No pneumothorax. Calcified granulomatous disease bilaterally. No acute pulmonary parenchymal or pleural abnormality. 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 XR/XR chest 1V portable [id number] IMPRESSION: Stable abnormal chest.
--- NOTE | 2025-02-06 15:55 | ECG_ITS ---
[facility] Test Date: 2025-02-06 Pat Name: Alejandro Jasso Department: Room: Gender: Male Script Developer: : [id number] Requested By: Candace Heredia Order Number: [id number] Petr MD: Luis Enrique Flanagan M.D. Measurements Intervals [place] Rate: 93 P: 80 CT: 159 QRS: 71 QRSD: 91 T: 64 QT: 357 QTc: 445 Interpretive Statements SINUS RHYTHM Compared to ECG 12/28/2024 11:15:50 Myocardial infarct finding no longer present Electronically Signed On 02-07-2025 07:59:02 CDT by Luis Enrique Flanagan M.D. [email or web address]
[2025-02-06 16:23] VITALS: BP 120/56; PULSE 91; O2SAT 94
[2025-02-06] MEDS: methylPREDNISolone sod succ 125 mg/2 mL INJ IVP (16:36)
[2025-02-06 16:54] LABS: Hematocrit 48.6 % (37-53); Hemoglobin 15.10 g/dL (11.27-16.99); Mean Corpuscular HGB Conc 31.1 g/dL (30-55); Mean Corpuscular Hemoglobin 28.8 pg (27-33); Mean Corpuscular Volume 92.7 fl (82-101); Nucleated Red Blood Cells % 0 %; Platelet Count 305 10^3/cmm (157-399); Red Blood Count 5.24 10^6/uL (3.85-5.65); White Blood Count 10.61 10^3/uL (3.29-11.43)
[2025-02-06 17:00] VITALS: BP 146/100; PULSE 59; O2SAT 98
--- OUTSIDE RECORDS SUMMARY | 2025-02-06 17:11 | XMS_ITS | Encounter Summary ---
Author Organization [employer] Address [address] [place] [address] Care Team Providers Care Glass Furnace Tender Name Role Phone Jose Juan Self MD Primary Care Provider [phone] Reason for Visit * Reason Onset Date Comments ER Follow Up 01/30/2025 Patient Communication Encounter Details Date Type Department Care Team (Late st Contact Info) Description 01/30/2025 Telephone [facility] Family Medicine [place] [address] [address] Jose Juan Self MD [address] [address] ER Follow Up; Patient Communication Social History Tobacco Use Types Packs/Day Years [...] worry about transportation for future doctor visits, bulk 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 Since ER visit: Patient is feeling the same. New symptoms since ER visit? no. Care recommendations (based on ER and PCN evaluation): Visit scheduled with Dr. Self for tomorrow yes The patient verbalized understanding that the [facility] Team is available to provide care. All they have to do is call the primary care office. * Telephone Encounter - Gaby Acosta - 01/30/2025 11:18 AM CDT Copied from [facility] #[id number]. Topic: CPA Information Request >> Jan 30, 2025 11:14 AM Gaby Fregoso wrote: Caller is returning phone call from clinic. Caller Name: katelyn on phi Patient/Caregiver Callback Number: Telephone Information: Clinic Left Note In Chart Is there a note from the clinic requesting the caller be transferred when they call back? Yes - note is for PCN Call Notes: Note indicated caller should be transferred to clinic when they called back. Transferred to Backline/MECHANICAL ENGINEERING DIRECTOR Line and katherin answered call.- per message * Telephone Encounter - Caprice Espinoza RN - 01/30/2025 8:23 AM CDT PCN URGENT TRANSITION NOTE REASON FOR CALL: Attempted to contact patient/caregiver regarding recentED visit with discharge home. No answer. Left voicemail/message to return our call. If patient/caregiver calls back, contact center please transfer caller to Backline / MECHANICAL ENGINEERING DIRECTOR line. Clinic please transfer call to Caprice White documented in this encounter Plan of Treatment Upcoming Encounters Date Type Department Care Team (Late st Contact Info) Description 02/08/2025 2:40 PM CDT Office Visit [facility] [address] [place] [phone] Mala Rhodes FNP [address] [place] [phone] 02/28/2025 3:20 PM CDT Office Visit [facility] [address] [place] [phone] Jose Juan Self MD [address] [place] [phone] 04/13/2025 4:20 PM BEHAVIORAL CONSULTANT Office Visit [facility] [address] [place] [phone] Jose Juan Self MD [address] [place] [phone] 07/14/2025 8:00 AM BEHAVIORAL CONSULTANT Office Visit [facility] [address] [place] [phone] Mala Rhodes FNP [address] [place] [address] documented as of this encounter Visit Diagnoses Not on filedocumented in this encounter Care Teams Glass Furnace Tender Relationship Specialty Start Date End Date Jose Juan Self MD [address] [phone] PCP - General Family Practice 01/11/25 documented as of this encounter
--- OUTSIDE RECORDS SUMMARY | 2025-02-06 17:11 | XMS_ITS | Encounter Summary ---
Author Organization [facility] Address [address] [place] [address] Care Team Providers Care Wafer Cleaner Name Role Phone Jose Juan Self MD Primary Care Provider [phone] Reason for Visit * Reason Onset Date Comments Ed Follow-up 02/06/2025 Encounter Details Date Type Department Care Team (Late st Contact Info) Description 02/06/2025 Telephone [facility] Medicine [place] [address] [address] Mala Rhodes, AGRONOMY MANAGER [address] [phone] Ed Follow-up Social History Tobacco Use Types Packs/Day Years [...] worry about transportation for future doctor visits, pickler helper medication, etc.? 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 Since ER visit: Patient is feeling the same. New symptoms since ER visit? no. Care recommendations (based on ER and PCN evaluation): Office visit with PCP team in 2 days no The patient verbalized understanding that the [facility] Care Team is available to provide care. All they have to do is call the primary care office. documented in this encounter Plan of Treatment Upcoming Encounters Date Type Department Care Team (Late st Contact Info) Description 02/08/2025 2:40 PM CDT Office Visit [address] [phone] Mala Rhodes FNP [address] [phone] 02/28/2025 3:20 PM CDT Office Visit [address] [phone] Jose Juan Self MD [address] [phone] 04/13/2025 4:20 PM OTHER SALES SUPPORT WORKER Office Visit [address] [phone] Jose Juan Self MD [address] [place] [address] 07/14/2025 8:00 AM OTHER SALES SUPPORT WORKER Office Visit [facility] [address] [place] [address] Mala Rhodes FNP [address] [place] [address] documented as of this encounter Visit Diagnoses Not on filedocumented in this encounter Care Teams Wafer Cleaner Relationship Specialty Start Date End Date Jose Juan Self MD [address] [place] [address] PCP - General Family Practice 01/11/25 documented as of this encounter
--- OUTSIDE RECORDS SUMMARY | 2025-02-06 17:11 | XMS_ITS | Clinical Summary ---
Author Organization [facility] Address [address] [place] [address] Phone Care Team Providers Care Tune Up Mechanic Name Role Phone Jose Juan Self MD Primary Care Provider [phone] Allergies No known active allergies Medications aspirin (SAVITA CHEWABLE) 81 mg Tablet, ChewableIndicat ions:Chronic obstructive pulmonary disease, unspecified COPD type (CMS/HCC) Take 1 Tablet (81 mg) by mouth daily. 30 Tablet 3 021 Active multivitamin tx with iron and folic acid tablet 18-400 mg-mcg Tablet Take 1 Tablet by mouth daily. 30 Tablet 025 Active white petrolatum (VASELINE) Gel Apply to affected area see administration instructions. 97.5 Gram 025 Active oxygen home delivery Home Oxygen Concentrator yes at 3 L/M Rest, 3 L/M Activity, 3 L/M Sleep, Delivery Device: Nasal Cannula Portability: yes, 3 L/M Rest, 3 L/M Activity, May provide device best for patient needs(E system,home fill, conserving device) Length of Need: 99 months 1 Each 025 Active lidocaine viscous 2% 2 % Solution 025 Active budesonide (PULMICORT RESPULE) 0.5 mg/2 mL Suspension for NebulizationInd ications:Chroni c hypoxic respiratory failure (CMS/HCC),Pulmo nary emphysema, unspecified emphysema type (CMS/HCC) Take 2 mL (0.5 mg) by inhalation 2 times daily. 60 Ampule 3 025 Active nebulizerIndica tions:Chronic hypoxic respiratory failure (CMS/HCC),Pulmo nary emphysema, unspecified emphysema type (CMS/HCC) Length of need 99 months Nebulizer with compressor, Kit: Permanent Nebulizer Kit, 1 per 6 months, filters , areosol mask: No. Name of Medication Lance 1 Each Active arformoteroL (BROVANA) 15 mcg/2 mL Solution for Nebulization Take 2 mL (15 mcg) by inhalation 2 times daily for 15 days. 60 mL 025 2024 Active lisinopriL (PRINIVIL) 40 mg tabletIndicatio ns:Essential hypertension Take 1 Tablet (40 mg) by mouth daily. 100 Tablet 3 025 Active busPIRone (BUSPAR) 10 mg tabletIndicatio ns:ANDRE (generalized anxiety disorder) Take 1 Tablet (10 mg) by mouth 3 times daily. 270 Tablet 3 025 Active buPROPion HCL (WELLBUTRIN SR) 150 mg Sustained Release 12 hour tabletIndicatio ns:ANDRE (generalized anxiety disorder),Moder ate episode of recurrent major depressive disorder (CMS/HCC) Take 1 Tablet (150 mg) by mouth 2 times daily. 180 Tablet 3 025 Active amLODIPine (NORVASC) 10 mg tabletIndicatio ns:Essential hypertension Take 1 Tablet (10 mg) by mouth daily. 90 Tablet 3 025 Active hydrOXYzine pamoate (VistariL) 25 mg capsuleIndicati ons:ANDRE (generalized anxiety disorder) Take 1 Capsule (25 mg) by mouth 3 times daily as needed for Anxiety. 90 Capsule 11 025 Active albuterol sulfate HFA 90 mcg/actuation aerosol inhalerIndicati ons:COPD with exacerbation (CMS/HCC),Panlo bular emphysema (CMS/HCC) Take 2 Puffs by inhalation every 4 hours as needed for Wheezing or Shortness of Breath. 8.5 Gram 11 025 Active prazosin (MINIPRESS) 1 mg capsuleIndicati ons:Essential hypertension,GA D (generalized anxiety disorder) Take 1 Capsule (1 mg) by mouth daily at bedtime. 90 Capsule 1 025 Active budesonide 160 mcg-glycopyr 9 mcg-formot 4.8 mcg/actuation HFA inhalerIndicati ons:Panlobular emphysema (CMS/HCC) Take 2 Puffs by inhalation 2 times daily. 1 Each 11 Active clonazePAM (KlonoPIN) 0.5 mg TabletIndicatio ns:ANDRE (generalized anxiety disorder),Panic anxiety syndrome Take 1 Tablet (0.5 mg) by mouth 2 times daily. Replaces lorazepam 60 Tablet Active albuterol (PROVENTIL,VENT KIESHA) 2.5 mg /3 mL (0.083 %) Solution for NebulizationInd ications:COPD with exacerbation (CMS/HCC),Panlo bular emphysema (CMS/HCC) Take 3 mL (2.5 mg) by inhalation every 4 hours as needed for Shortness of Breath. 300 mL Active doxycycline hyclate (VIBRAMYCIN) 100 mg tabletIndicatio ns:COPD with exacerbation (CMS/HCC) Take 1 Tablet (100 mg) by mouth 2 times daily for 14 days. 28 Tablet 2024 Active predniSONE (DELTASONE) 20 mg tablet Take 1 Tablet (20 mg) by mouth 2 times daily with meals for 5 days. 10 Tablet 2024 Active nebulizer Length of need 99 months Nebulizer with compressor, Kit: Permanent Nebulizer Kit, 1 per 6 months, filters , areosol mask: No. Name of Medication Duoneb 1 Each 2024 Discontinued(R eorder) busPIRone (BUSPAR) 10 mg tablet Take 1 Tablet (10 mg) by mouth 3 times daily. 90 Tablet 2024 Discontinued(R eorder) lisinopriL (PRINIVIL) 40 mg tablet Take 1 Tablet (40 mg) by mouth daily. 30 Tablet 2024 Discontinued(R eorder) prazosin (MINIPRESS) 1 mg capsule Take 1 Capsule (1 mg) by mouth 3 times daily. 90 Capsule 2024 Discontinued(R eorder) albuterol sulfate HFA 90 mcg/actuation aerosol inhaler Take 4 Puffs by inhalation every 4 hours as needed for Shortness of Breath. 8.5 Gram 025 2024 Discontinued(R eorder) hydrOXYzine pamoate (VistariL) 25 mg capsule Take 1 Capsule (25 mg) by mouth 3 times daily as needed for Anxiety. 90 Capsule 025 2024 Discontinued(R eorder) tiotropium (SPIRIVA RESPIMAT) 2.5 mcg/actuation Mist Take 2 Puffs by inhalation daily. 4 Gram 2024 Discontinued(R eorder) amLODIPine (NORVASC) 10 mg tablet Take 1 Tablet (10 mg) by mouth daily. 30 Tablet 2024 Discontinued(R eorder) buPROPion HCL (WELLBUTRIN SR) 150 mg Sustained Release 12 hour tablet Take 1 Tablet (150 mg) by mouth 2 times daily. 60 Tablet 2024 Discontinued(R eorder) arformoteroL (BROVANA) 15 mcg/2 mL Solution for Nebulization 15 mcg. 023 2024 Discontinued(R eorder) azithromycin (ZITHROMAX) 250 mg tablet 2024 Discontinued budesonide (PULMICORT RESPULE) 0.5 mg/2 mL Suspension for Nebulization 0.5 mg. 023 2024 Discontinued(R eorder) ipratropium bromide (ATROVENT) 0.02 % Solution 2024 Discontinued LORazepam (ATIVAN) [address] 1 TABLET UNDER THE TONGUE THREE TIMES DAILY NEEDED FOR ANXIETY 2024 Discontinued(R eorder) albuterol sulfate HFA 90 mcg/actuation aerosol inhalerIndicati ons:Chronic hypoxic respiratory failure (CMS/HCC),Pulmo nary emphysema, unspecified emphysema type (CMS/HCC) Take 4 Puffs by inhalation every 4 hours as needed for Shortness of Breath. 8.5 Gram 025 2024 Discontinued hydrOXYzine pamoate (VistariL) 25 mg capsuleIndicati ons:ANDRE (generalized anxiety disorder) Take 1 Capsule (25 mg) by mouth 3 times daily as needed for Anxiety. 90 Capsule 025 2024 Discontinued(R eorder) amLODIPine (NORVASC) 10 mg tabletIndicatio ns:Essential hypertension Take 1 Tablet (10 mg) by mouth daily. 30 Tablet 025 2024 Discontinued(R eorder) lisinopriL (PRINIVIL) 40 mg tabletIndicatio ns:Essential hypertension Take 1 Tablet (40 mg) by mouth daily. 30 Tablet 025 2024 Discontinued(R eorder) prazosin (MINIPRESS) 1 mg capsuleIndicati ons:Essential hypertension Take 1 Capsule (1 mg) by mouth 3 times daily. 90 Capsule 025 2024 Discontinued(R eorder) buPROPion HCL (WELLBUTRIN SR) 150 mg Sustained Release 12 hour tabletIndicatio ns:ANDRE (generalized anxiety disorder),Moder ate episode of recurrent major depressive disorder (CMS/HCC) Take 1 Tablet (150 mg) by mouth 2 times daily. 60 Tablet 025 2024 Discontinued(R eorder) busPIRone (BUSPAR) 10 mg tabletIndicatio ns:ANDRE (generalized anxiety disorder) Take 1 Tablet (10 mg) by mouth 3 times daily. 90 Tablet 025 2024 Discontinued(R eorder) LORazepam (ATIVAN) 1 mg tabletIndicatio ns:Anxiety state Take 1 Tablet (1 mg) by mouth every 6 hours as needed for Anxiety. 4 Tablet 025 2024 Discontinued predniSONE (DELTASONE) 50 mg tablet Take 1 Tablet (50 mg) by mouth daily for 4 days. 4 Tablet 025 2024 Discontinued azithromycin (ZITHROMAX) 250 mg tablet Take 2 Tablets (500 mg) by mouth daily for 1 day, THEN 1 Tablet (250 mg) daily for 4 days. 6 Tablet 025 2024 Discontinued albuterol sulfate HFA 90 mcg/actuation aerosol inhaler Take 2 Puffs by inhalation every 6 hours as needed for Wheezing or Shortness of Breath. 8.5 Gram 025 2024 Discontinued tiotropium (SPIRIVA RESPIMAT) 2.5 mcg/actuation Mist Take 2 Puffs by inhalation daily. 4 Gram 025 2024 Discontinued arformoteroL (BROVANA) 15 mcg/2 mL Solution for Nebulization Take 2 mL (15 mcg) by inhalation 2 times daily for 14 days. 56 mL 025 2024 Discontinued albuterol sulfate HFA 90 mcg/actuation aerosol inhaler Take 2 Puffs by inhalation every 6 hours as needed for Wheezing or Shortness of Breath. 8.5 Gram 025 2024 Discontinued(R eorder) predniSONE (DELTASONE) 50 mg tablet Take 1 Tablet (50 mg) by mouth daily for 4 days. 4 Tablet 025 2024 Discontinued azithromycin (ZITHROMAX) 250 mg tablet Take 2 Tablets (500 mg) by mouth daily for 1 day, THEN 1 Tablet (250 mg) daily for 4 days. 6 Tablet 025 2024 Discontinued tiotropium (SPIRIVA RESPIMAT) 2.5 mcg/actuation Mist Take 2 Puffs by inhalation daily. 4 Gram 025 2024 Discontinued arformoteroL (BROVANA) 15 mcg/2 mL Solution for Nebulization Take 2 mL (15 mcg) by inhalation 2 times daily for 14 days. 56 mL 025 2024 Discontinued predniSONE (DELTASONE) 10 mg tabletIndicatio ns:COPD with exacerbation (CMS/HCC) Take 4 tabs daily for 3 days, then 3 tabs daily for 3 days, then 2 tabs daily for 3 days, then 1 tab daily for 3 days 30 Tablet 025 2024 Discontinued Active Problems Problem Noted Date Diagnosed Date Panic anxiety syndrome 01/31/2025 Hepatic lesion 01/11/2025 Hidradenitis suppurativa 12/18/2024 Homelessness 12/18/2024 ASCVD (arteriosclerotic cardiovascular disease) 06/17/2024 Chronic hypoxic respiratory failure 06/11/2024 PAD (peripheral artery disease) 06/30/2022 CHF (congestive heart failure) 06/20/2022 Non compliance w medication regimen 12/23/2020 Essential hypertension 09/07/2020 Chronic hepatitis C 09/07/2020 Atherosclerosis of aorta 09/07/2020 Hyperlipidemia 09/07/2020 Panlobular emphysema 09/07/2020 Cannabis abuse 09/07/2020 Status post aortobifemoral bypass surgery 2020 Substance use 08/18/2020 Ischemia of both lower extremities 08/18/2020 Protein-calorie malnutrition, moderate Depression 08/18/2020 Aortic occlusion 08/17/2020 ANDRE (generalized anxiety disorder) 08/14/2020 COPD with exacerbation 07/24/2020 Tobacco use 04/26/2017 Nondependent cannabis abuse Anxiety state Bilateral leg numbness Bilateral leg weakness Resolved Problems Problem Noted Date Diagnosed Date Resolved Date Exercise hypoxemia 01/11/2025 Dependence on continuous supplemental oxygen 01/31/2025 RSV (acute bronchiolitis due to respiratory syncytial virus) 08/24/2024 01/11/2025 RSV infection 08/23/2024 01/11/2025 Pneumonia of both lower lobe s due to infectious organism 08/23/2024 01/11/2025 Chronic obstructive pulmonary disease (COPD) 01/31/2025 Acute hypoxic respiratory failure 06/18/2024 01/11/2025 Nocturnal hypoxia 06/06/2024 01/31/[address]-T wave electr ocardiographic changes 06/06/2024 01/11/2025 Anxiety 06/06/2024 01/31/2025 Acute respiratory failure with hypoxemia 06/19/2023 01/11/2025 Dyspnea 06/19/2023 01/31/2025 Abnormal EKG 06/21/2022 01/11/2025 Elevated troponin 06/20/2022 01/11/2025 Hypotension 06/20/2022 01/11/2025 Hypovolemic shock 12/23/2020 01/11/2025 Syncope 12/23/2020 05/09/2021 Stimulant abuse 09/07/2020 01/31/2025 Non-organic psychosis 09/07/20202024 Leukocytosis (leucocytosis) 08/18/2020 01/11/2025 Hx of fasciotomy 08/18/2020 05/09/2021 Acute respiratory insufficiency 08/18/2020 05/09/2021 Lactic acidosis 08/18/2020 05/09/2021 YURI (acute kidney injury) 08/18/2020 Psychosis 05/09/2021 Methamphetamine abuse 2020 Acute blood loss anemia 12/24 Acute midline low back pain without sciatica 05/09/2021 Encounters Date Type Department Care Team Description 02/06/[address] [phone] Mala Rhodes FNP Ed Follow-up 02/03/2025 7:14 PM CDT - 02/03/2025 9:39 PM CDT Emergency [facility] Emergency Medicine [address] [phone] Kilo Benitez MD Dyspnea, unspecified type (Primary Dx) Discharge Disposition: Home or Self Care 01/31/2025 10:00 AM CDT Office Visit [address] [phone] Jose Juan Self MD Panlobular emphysema (CMS/HCC) (Primary Dx); Essential hypertension; ANDRE (generalized anxiety disorder); Moderate episode of recurrent major depressive disorder (CMS/HCC); Chronic hepatitis C without hepatic coma (CMS/HCC); COPD with exacerbation (CMS/HCC); Chronic hypoxic respiratory failure (CMS/HCC); Chronic diastolic congestive heart failure (CMS/HCC); Tobacco use; PAD (peripheral artery disease); Panic anxiety syndrome; Mass of upper lobe of right lung; Hidradenitis suppurativa 01/30/[address] [phone] Jose Juan Self MD ER Follow Up; Patient Communication 01/28/2025 10:39 AM CDT - 01/28/2025 12:27 PM CDT Emergency [facility] Emergency Medicine [address] [phone] Marck Ferguson DO COPD with exacerbation (CMS/HCC) (Primary Dx); Anxiety state Discharge Disposition: Home or Self Care 01/28/2025 Travel 01/25/2025 External Device Data STL ABSTRACTION Provider, Abstract 01/20/2025 Telephone [facility] [address] [phone] Carmelo, Crystal Mattie, LEAK DETECTOR Labs needed 01/19/2025 Orders Only [facility] [address] [phone] Carmelo, Crystal Mattie, LEAK DETECTOR Chronic hepatitis C without hepatic coma (CMS/HCC) (Primary Dx) 01/18/2025 Medication Prior Auth Encounter [facility] Prescription Management Dept [address] [place] [address] [place] [phone] Camilo Horton, PHARMACIST 01/11/2025 9:00 AM CDT Office Visit [address] [phone] Carmelo, Crystal Mattie, LEAK DETECTOR Essential hypertension (Primary Dx); Encounter for colorectal cancer screening; Chronic hepatitis C without hepatic coma (CMS/HCC); ANDRE (generalized anxiety disorder); Moderate episode of recurrent major depressive disorder (CMS/HCC); Chronic hypoxic respiratory failure (CMS/HCC); Pulmonary emphysema, unspecified emphysema type (CMS/HCC); Stimulant abuse (CMS/HCC) 01/11/2025 Telephone [facility] [address] [phone] Carmelo, Crystal Mattie, LEAK DETECTOR Provider Call 01/11/[address] [phone] Carmelo Crystal Mattie, LEAK DETECTOR ANDRE (generalized anxiety disorder) (Primary Dx) 12/28/2024 7:25 AM CDT - 12/28/2024 11:59 PM CDT Hospital Encounter [facility] Emergency Medical Services [place] [address] [phone] [facility] [place] Discharge Disposition: [email or web address] 12/18/2024 3:40 PM CDT - 12/19/2024 11:52 AM CDT [facility] Medical Surgical [address] [place] [phone] Rhianna Means MD COPD with exacerbation (CMS/HCC) Discharge Disposition: Home or Self Care 12/09/2024 5:48 AM CDT - 12/09/2024 12:18 PM CDT [facility] Emergency Department [address] [place] [phone] Colt Cronin DO COPD with exacerbation (CMS/HCC) (Primary Dx) Discharge Disposition: Home or Self Care 12/07/2024 11:52 PM CDT - 12/08/2024 12:39 AM T [facility] Emergency Department [address] [place] [phone] Sebas Siddiqi MD Malingering (Primary Dx) Discharge Disposition: Home or Self Care 12/07/2024 8:43 PM CDT - 12/07/2024 11:06 PM T [facility] Emergency Department [address] [place] [phone] Jacek Dalton MD COPD with exacerbation (CMS/HCC) (Primary Dx); Anxiety state; Folliculitis; Homelessness; Non compliance w medication regimen; Verbally abusive behavior Discharge Disposition: Home or Self Care 12/07/2024 Travel 11/14/2024 6:42 PM CDT - 11/14/2024 6:43 PM CDT [facility] Emergency Department [address] [place] [phone] Discharge Disposition: Left without being seen 11/14/2024 Travel from Last 3 Months Immunizations Immunization Administration Dates Next Due (PREVNAR 20)(6 WKS UP) PNEUM OCOCCAL CONJUGATE VACCINE 20-VALENT (PCV20), POLYSACCHARIDE [id number] CONJUGATE, ADJUVANT 0.5 ML (PF) IM 06/30/2022 INFLUENZA VACCINE QUADRIVALENT 6 MOS UP PF IM Influenza Seasonal Unspecified Formulation IM Skin Test TB 09/07/2020 Family History Medical History Relation Name Comments Unknown Father Unknown Mother Relation Name Status Comments Father Mother Social History Tobacco Use Types Packs/Day Years Used Date Smoking Tobacco: Every Day Cigarettes 0.3 50 Smokeless Tobacco: Former Tobacco Cessation:Ready to Q uit: Not Asked; Counseling Given: Not Answered Comments:Quit smoking: About ready to give that up - 2 [...] worry about transportation for future doctor visits, slat pickler medication, etc.? Yes 2024 Utility Needs Answer [...] on file Legal Sex Male 6:13 AM CLINICAL REHAB LIAISON Gender Identity Not on file Sexual Orientation Not on file Last Filed Vital Signs Vital Sign Reading [...] Mass Index 25.36 02/03/2025 7:13 PM CDT Plan of Treatment Upcoming Encounters Date Type Department Care Team (Late st Contact Info) Description 02/08/2025 2:40 PM CDT Office Visit [facility] [address] [place] [phone] Mala Rhodes FNP [address] [place] [phone] 02/28/2025 3:20 PM CDT Office Visit [facility] [address] [place] [phone] Jose Juan Self MD [address] [place] [phone] 04/13/2025 4:20 PM CLINICAL REHAB LIAISON Office Visit [facility] [address] [place] [phone] Jose Juan Self MD [address] [place] [phone] 07/14/2025 8:00 AM CLINICAL REHAB LIAISON Office Visit [facility] [address] [place] [phone] Mala Rhodes FNP [address] [place] [phone] Health Maintenance Due Date Last Done Comments FIT/ DNA Q 3 YEARS (AUTO ORDER) 1977 FIT/FOBT Q 1 YEAR (AUTO ORDER) 1977 FLEX SIG/CT COLONOGRAPHY Q 5 YEARS (AUTO ORDER) 1977 DTAP/TDAP/TD VACCINES (1 - Tdap) 1978 Traditional Medicare (ACO) A nnual Wellness Visit 1978 COLORECTAL CANCER SCREENING (AUTO ORDER) 2004 COLORECTAL SCREENING 2004 Colorectal Cancer Screening (AUTO ORDER) 2004 Colorectal Cancer Screening 2004 FIT-DNA Q 3 years 2004 FIT/FOBT Q 1 year 2004 Flex Sig/CT Colonography Q 5 years 2004 ZOSTER VACCINE (1 of 2) 2009 RSV VACCINE (60+ or ) (1 - Risk 60-74 years 1-dose series) 2019 Pre-Diabetes and Diabetes Screening 08/15/202308/14 Abdominal Aortic Aneurysm (AAA) Screening 2024 Medicare Advantage (OK) Prev entative Visit/Annual Wellness Visit 05/25/2024 INFLUENZA VACCINE (#1) 2024 06/30/2022, 2022 COVID-19 Vaccine (2 - season) 01/23/202504/2022 PNEUMOCOCCAL VACCINE 50+ YEARS Completed 06/30/2022 Medical Devices Implanted Type Area Rubber Tile Floor Layer Device Identifier Shelf Expiration Date Model / Serial / Lot Clip Ligating Horizon Lg Ti [id number] - Csc - [id number] Implanted:Qty : 1 on 08/17/2020 by Gonzales Madison MD Clip N/A: Chest TELE[employer]LEX- [employer]EC[employer] [id number] 11/20/2024 [id number] / / [id number] Hemostatic Surgiflo 8ml W/Thrombin 2994 - [id number] Implanted:Qty : 1 on 08/17/2020 by Gonzales Madison MD Hemostatic N/A: Abdomen [employer] 12/22/2021 [id number] / / [id number] Hemostatic Surgiflo 8ml W/Thrombin 2994 - [id number] Implanted:Qty : 1 on 08/17/2020 by Gonzales Madison MD Hemostatic Abdomen J[employer] 12/22/2021 [id number] / / [id number] Hemostatic Surgiflo 8ml W/Thrombin 2994 - [id number] Implanted:Qty : 1 on 09/04/2020 by Gonzales Madison MD Hemostatic Right: Neck J[employer] [id number] 08/22/2021 2994 / / [id number] Graft Hmshld Christopher Moreno [id number] - [id number] Implanted:Qty : 1 on 08/17/2020 by Gonzales Madison MD Tissue N/A: Chest [employer] [id number] 10/22/2024 [id number] 1 Patch Vascu-Guard [id number] - [id number] Implanted:Qty : 1 on 09/04/2020 by Gonzales Madison MD Tissue Right: Neck [employer] [id number] 04/26/2025 [id number] / / [id number] Procedures Procedure Name Priority Date/Time Associated Diagnosis Comments CTA CHEST W AND/OR WO CONTRAST Stat 02/03/2025 8:34 PM CDT XR CHEST PA OR AP 1 VW Stat 02/03/2025 7:34 PM CDT COVID-19 ANTIGEN Stat 02/03/2025 7:30 PM CDT INFLUENZA VIRUS A AND B, ANTIGEN DETECTION Stat 02/03/2025 7:30 PM CDT D-DIMER Stat 02/03/2025 7:26 PM CDT MAGNESIUM LEVEL Stat 02/03/2025 7:26 PM CDT TROPONIN BASELINE, 5TH GEN Stat 02/03/2025 7:26 PM CDT BRAIN NATRIURETIC PEPTIDE, BNP OR PROBNP Stat 02/03/2025 7:26 PM CDT COMPREHENSIVE METABOLIC PANEL Stat 02/03/2025 7:26 PM CDT CBC WITH DIFFERENTIAL Stat 02/03/2025 7:26 PM CDT XR CHEST PA OR AP 1 VW Stat 01/28/2025 10:59 AM CDT TROPONIN BASELINE, 5TH GEN Stat 01/28/2025 10:52 AM CDT MAGNESIUM LEVEL Stat 01/28/2025 10:52 AM CDT BRAIN NATRIURETIC PEPTIDE, BNP OR PROBNP Stat 01/28/2025 10:52 AM CDT COMPREHENSIVE METABOLIC PANEL Stat 01/28/2025 10:52 AM CDT CBC WITH DIFFERENTIAL Stat 01/28/2025 10:52 AM CDT OXYGEN VIA DEVICE TO KEEP O2 SAT ABOVE Stat 01/28/2025 10:50 AM CDT RT ASSESS AND TREAT Stat 01/28/2025 1 0:50 AM CDT XR CHEST PA OR AP 1 VW Stat 12/18/2024 4:41 PM CDT MAGNESIUM LEVEL Stat 12/18/2024 4:30 PM CDT BRAIN NATRIURETIC PEPTIDE, BNP OR PROBNP Stat 12/18/2024 4:30 PM CDT COMPREHENSIVE METABOLIC PANEL Stat 12/18/2024 4:30 PM CDT CBC WITH DIFFERENTIAL Stat 12/18/2024 4:30 PM CDT COMPREHENSIVE METABOLIC PANEL Stat 12/09/2024 6:26 AM CDT CBC WITH DIFFERENTIAL Stat 12/09/2024 6:26 AM CDT XR CHEST PA OR AP 1 VW Stat 12/09/2024 6:04 AM CDT TROPONIN 6 HR, 5TH GEN Timed Study 12/07/2024 7:56 PM CDT TROPONIN 2 HR, 5TH GEN Timed Study 12/07/2024 5:43 PM CDT BRAIN NATRIURETIC PEPTIDE, BNP OR PROBNP Stat 12/07/2024 2:52 PM CDT TROPONIN BASELINE, 5TH GEN Stat 12/07/2024 2:52 PM CDT COMPREHENSIVE METABOLIC PANEL Stat 12/07/2024 2:52 PM CDT CBC WITH DIFFERENTIAL Stat 12/07/2024 2:52 PM CDT XR CHEST PA OR AP 1 VW Stat 12/07/2024 2:20 PM CDT RT ASSESS AND TREAT Stat 12/07/2024 1 :20 PM CDT EKG 12-LEAD Stat 12/07/2024 1:14 PM CDT GLUCOSE FASTING Routine 08/14/2020 9:32 AM CDT from Last 3 Months or Most Recently Relevant to Health Maintenance Results * CTA CHEST W AND/OR WO [...] to intermediate prob, positive D-dimer ORDERING PROVIDER: KILO BENITEZ TECHNOLOGISTS NOTE: COMPARISON: August 2024 TECHNIQUE: [...] to intermediate prob, positive D-dimer ORDERING PROVIDER: KILO BENITEZ TECHNOLOGISTS NOTE: COMPARISON: August 2024 TECHNIQUE: [...] seen within the lung apices. MACRO: None us Kilo Benitez MD CT ORDERABLES Final Result * XR CHEST PA OR AP 1 VW (02/03/2025 7:34 PM CDT) Only the most recent of5 resultswithin the time period is included. Anatomical Region Laterality Modality Chest Computed Radiogr aphy 02/03/2025 7:35 PM CDT Impressions 02/03/2025 8:06 PM CDT IMPRESSION: See below. EXAMINATION: XR CHEST PA OR AP 1 VW CLINICAL HISTORY: ASSOCIATED DIAGNOSIS: CHF ORDERING PROVIDER: KILO BENITEZ TECHNOLOGISTS NOTE: COMPARISON: 01/28/2025, CT chest [...] CLINICAL HISTORY: ASSOCIATED DIAGNOSIS: CHF ORDERING PROVIDER: KILO BENITEZ TECHNOLOGISTS NOTE: COMPARISON: 01/28/2025, CT chest dated August 23, 2024 FINDINGS/IMPRESSION: Lines, tubes, and devices: None. Chronic emphysematous and interstitial changes are again seen. Lucency again seen within the medial right and upper lung zones correspond to prominent blebs on prior CT. Peribronchial cuffing is seen. No significant effusion or pneumothorax. Heart size within normal limits. Kilo Benitez MD DIAGNOSTIC IMAGING OR DERABLES Final Result * COVID-19 ANTIGEN (02/03/2025 7:30 PM CDT) COVID-19 ANTIGEN Presumptive Negative Presumptive Negative 02/03/2025 7:56 PM CDT [facility] Upper Respiratory ANTERIOR NARES SWAB / Unknown Collection / Unknown 02/03/2025 7:30 PM CDT 02/03/2025 7:36 PM CDT [facility] ED - 02/03/2025 7:56 PM CDT Yesica SARS antigen test has been authorized by FDA under an emergency use authorization (EUA) and has been authorized only for the detection of proteins from SARS-CoV-2 and influenza, not for any other viruses or pathogens. Yesica SARS Antigen HARDEEP is intended for the simultaneous qualitative detection and differentiation of nucleocapsid protein antigen from SARS-CoV-2 directly from nasopharyngeal (TOBACCO SAMPLE PULLER) and nasal (NS) swab specimens collected from [...] with at least 48 hours between tests. Kilo Benitez MD [employer] ORDERABLES Final Result Performing Organization Address City/[facility] Co de Phone Number [facility] CLIA # [id number] [address] [place] [id number] * INFLUENZA VIRUS A AND B, ANTIGEN DETECTION (02/03/2025 7:30 PM CDT) Pathologist [facility] INFLUENZA A AG NOT DETECTED Not Detected 02/03/2025 7:55 PM CDT [facility] INFLUENZA B AG NOT DETECTED Not Detected 02/03/2025 7:55 PM CDT [facility] Upper Respiratory ENTIRE NASOPHARYNX / Unknown Collection / Unknown 02/03/2025 7:30 PM CDT 02/03/2025 7:36 PM CDT Narrative [facility] - 02/03/2025 7:55 PM CDT Negative results do not rule out infection. If clinically indicated, consider PCR testing which is more sensitive than antigen testing. If PCR testing is desired, consult with your local laboratory as sample recollection may be required. Kilo Benitez MD [employer] ORDERABLES Final Result Performing Organization Address [facility] Co de Phone Number [facility] CLIA # [id number] [address] [place] [address] [phone] * TROPONIN BASELINE, 5TH GEN (02/03/2025 7:26 PM CDT) Only the most recent of3 resultswithin the time period is included. [facility] TROPONIN T, BASELINE 5TH GEN <6 <=15 ng/L 02/03/2025 7:57 PM [facility] Blood BLOOD SPECIMEN / Unknown Collection / Unknown 02/03/2025 7:26 PM CDT 02/03/2025 7:35 PM CDT Narrative [facility] - 02/03/2025 7:57 PM CDT Troponin Undetectable us Kilo Benitez MD CHEMISTRY ORDERABLES Final Result [facility] CLIA # [id number] [address] [place] [address] [id number] * (ABNORMAL) CBC WITH DIFFERENTIAL (02/03/2025 7:26 PM CDT) Only the most recent of5 resultswithin the time period is included. [facility] WBC 13.0(H) 4.2 - 9.1 K/uL 02/03/2025 7:40 PM [facility] RBC 4.57(L) 4.63 - 6.08 M/uL 02/03/2025 7:40 PM [facility] HEMOGLOBIN 13.2(L) 13.7 - 17.5 g/dL 02/03/2025 7:40 PM [facility] HEMATOCRIT 40.6 40.1 - 51.0 % 02/03/2025 7:40 PM [facility] MCV 88.8 79.0 - 92.2 fL 02/03/2025 7:40 PM [facility] MCH 28.9 25.7 - 32.2 pg 02/03/2025 7:40 PM [facility] MCHC 32.5 32.3 - 36.5 g/dL 02/03/2025 7:40 PM [facility] RDW 15.3(H) 11.0 - 14.5 % 02/03/2025 7:40 PM [facility] RDW-STDEV 49.5 36.9 - 56.9 fL 02/03/2025 7:40 PM [facility] PLATELETS 275 130 - 400 K/uL 02/03/2025 7:40 PM [facility] MPV 8.5(L) 10.0 - 14.8 fL 02/03/2025 7:40 PM [facility] NEUTROPHILS 78(H) 34 - 68 % 02/03/2025 7:40 PM [facility] LYMPHOCYTES 15(L) 22 - 53 % 02/03/2025 7:40 PM [facility] MONOCYTES 6 5 - 12 % 02/03/2025 7:40 PM [facility] EOSINOPHILS 0(L) 1 - 7 % 02/03/2025 7:40 PM [facility] BASOPHILS 0 0 - 1 % 02/03/2025 7:40 PM [facility] IMMATURE GRANULOCYTES 1 % 02/03/2025 7:40 PM [facility] NEUTROPHIL ABSOLUTE 10.14(H) 1.78 - 5.38 K/uL 02/03/2025 7:40 PM [facility] LYMPHOCYTE ABSOLUTE 1.96 1.20 - 3.40 K/uL 02/03/2025 7:40 PM [facility] MONOCYTE ABSOLUTE 0.80 0.30 - 0.82 K/uL 02/03/2025 7:40 PM [facility] EOSINOPHIL ABSOLUTE 0.02(L) 0.04 - 0.54 K/uL 02/03/2025 7:40 PM [facility] BASOPHILS ABSOLUTE 0.03 0.01 - 0.08 K/uL 02/03/2025 7:40 PM [facility] IMMATURE GRANULOCYTES ABSOLUTE 0.08 K/uL 02/03/2025 7:40 PM [facility] Blood BLOOD SPECIMEN / Unknown Collection / Unknown 02/03/2025 7:26 PM CDT 02/03/2025 7:35 PM CDT Kilo Benitez MD HEMATOLOGY ORDERABLES Final Result Performing Organization Address City/[facility]/ZIP Co de Phone Number [facility] CLIA # [id number] [address] [place] [address] [phone] * (ABNORMAL) D-DIMER (02/03/2025 7:26 PM CDT) D-DIMER QUANT 1.31(H) <0.50 ug/mL FEU 02/03/2025 7:53 PM CDT [facility] Blood BLOOD SPECIMEN / Unknown Collection / Unknown 02/03/2025 7:26 PM CDT 02/03/2025 7:35 PM CDT [facility] - 02/03/2025 7:53 PM CDT D-Dimer assay [...] ug/mL FEU 71-80 years: 0.71-0.80 ug/mL FEU Kilo Benitez MD HEMATOLOGY ORDERABLES Final Result Performing Organization Address City/[facility]/ZIP Co de Phone Number [facility] CLIA # [id number] [address] [place] [address] [phone] * (ABNORMAL) BRAIN NATRIURETIC PEPTIDE, BNP OR PROBNP (02/03/2025 7:26 PM CDT) Only the most recent of4 resultswithin the time period is included. PROBNP, N TERMINAL 286(H) 0 - 125 pg/mL 02/03/2025 7:57 PM CDT [facility] Comment: INTERPRETIVE COMMENT based on diagnosis: [...] 7:26 PM CDT 02/03/2025 7:35 PM CDT Kilo Benitez MD CHEMISTRY ORDERABLES Final Result Performing Organization Address [facility] Co de Phone Number [facility] CLIA # [id number] [address] [place] [address] [phone] * MAGNESIUM LEVEL (02/03/2025 7:26 PM CDT) Only the most recent of3 resultswithin the time period is included. MAGNESIUM 2.3 1.6 - 2.4 mg/dL 02/03/2025 7:57 PM CDT [facility] Blood BLOOD SPECIMEN / Unknown Collection / Unknown 02/03/2025 7:26 PM CDT 02/03/2025 7:35 PM CDT Kilo Benitez MD CHEMISTRY ORDERABLES Final Result Performing Organization Address City/[facility]/ZIP Co de Phone Number [facility] CLIA # [id number] [address] [place] [address] [phone] * (ABNORMAL) COMPREHENSIVE METABOLIC PANEL (02/03/2025 7:26 PM CDT) Only the most recent of5 resultswithin the time period is included. SODIUM 144 136 - 145 mmol/L 02/03/2025 7:57 PM CDT [facility] POTASSIUM 4.1 3.5 - 5.1 mmol/L 02/03/2025 7:57 PM [facility] CHLORIDE 103 98 - 107 mmol/L 02/03/2025 7:57 PM [facility] CO2 30(H) 22 - 29 mmol/L 02/03/2025 7:57 PM [facility] CALCIUM 9.2 8.8 - 10.2 mg/dL 02/03/2025 7:57 PM [facility] BUN 20 8 - 23 mg/dL 02/03/2025 7:57 PM [facility] CREATININE 0.94 0.67 - 1.17 mg/dL 02/03/2025 7:57 PM [facility] GLUCOSE 155(H) 74 - 99 mg/dL 02/03/2025 7:57 PM [facility] TOTAL PROTEIN 6.9 6.6 - 8.7 g/dL 02/03/2025 7:57 PM [facility] ALBUMIN 4.0 3.5 - 5.2 g/dL 02/03/2025 7:57 PM [facility] BILIRUBIN TOTAL 0.2 0.0 - 1.2 mg/dL 02/03/2025 7:57 PM [facility] ALKALINE PHOSPHATASE 98 40 - 129 U/L 02/03/2025 7:57 PM [facility] AST 20 0 - 50 U/L 02/03/2025 7:57 PM [facility] ALT 11 0 - 50 U/L 02/03/2025 7:57 PM [facility] GFR >60 >=60 mL/min/1.7 3 sq meter 02/03/2025 7:57 PM [facility] Comment:eGFR calculated with 2020 CKD-EPI equation. Vegetarian diet, extremely high or low muscle mass, and may affect results. Cystatin C with Glomerular Filtration Rate is a suitable alternative for these patients. ANION GAP 11 5 - 20 mmol/L 02/03/2025 7:57 PM [facility] Blood BLOOD SPECIMEN / Unknown Collection / Unknown 02/03/2025 7:26 PM CDT 02/03/2025 7:35 PM CDT us Kilo Benitez MD CHEMISTRY ORDERABLES Final Result [facility] CLIA # [id number] [address] [place] [address] [phone] * TROPONIN 6 HR, 5TH GEN (12/07/2024 7:56 PM CDT) TROPONIN T, 6 HR 5TH GEN 9 <=15 ng/L 12/07/2024 8:37 PM CDT [facility] DELTA 6HR TROPONIN T -2 See Interp. 12/07/2024 8:37 PM CDT [facility] Blood Venipuncture / Unknown 12/07/2024 7:56 PM CDT 12/07/2024 8:01 PM CDT Narrative [facility] - 12/07/2024 8:37 PM CDT Troponin Detectable but normal range. Delta indeterminate. Delay in collection of timed specimen beyond recommended collection interval. Results must be interpreted in clinical context. Chat[employer] LOTTP CHEMISTRY ORDERABLES Fi nal Result Performing Organization Address City/[facility]/ZIP Co de Phone Number [facility] CLIA # [id number] [address] [place] [address] 53683 * TROPONIN 2 HR, 5TH GEN (12/07/2024 5:43 PM CDT) TROPONIN T, 2 HR 5TH GEN 9 <=15 ng/L 12/07/2024 6:23 PM CDT [facility] DELTA 2HR TROPONIN T -2 See Interp. 12/07/2024 6:23 PM CDT [facility] Blood Venipuncture / Unknown 12/07/2024 5:43 PM CDT 12/07/2024 5:47 PM CDT Narrative [facility] - 12/07/2024 6:23 PM CDT Troponin Detectable but normal range. Delta not changing. Delay in collection of timed specimen beyond recommended collection interval. Results must be interpreted in clinical context. 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 : 1960 Requested By: Order Number: [id number] Reading MD: Caryn Sevilla Measurements Intervals [place] Rate: 95 P: 71 KS: 174 QRS: 42 QRSD: 84 T: -87 QT: 386 QTc: 485 Interpretive Statements Normal sinus rhythm Possible Anterior infarct, age undetermined T wave abnormality, consider lateral ischemia Abnormal ECG Electronically Signed On 12-07-2024 18:02:02 CDT by Caryn Sevilla Procedure Note Caryn Sevilla, DO - 12/07/2024 [id number] [place] [address] Test Date: 2024-12-07 Pat Name: ALEJANDRO GOODMANConnor Department: 11 Room: Gender: Male Finger Buffs Assembler: ehsanamalia : 1960 Requested By: Order Number: [id number] Reading MD: Caryn Sevilla Measurements Intervals [place] Rate: 95 P: 71 KS: 174 QRS: 42 QRSD: 84 T: -87 QT: 386 QTc: 485 Interpretive Statements Normal sinus rhythm Possible Anterior infarct, age undetermined T wave abnormality, consider lateral ischemia Abnormal ECG Electronically Signed On 12-07-2024 18:02:02 CDT by Caryn Sevilla Jacek Dalton MD ECG ORDERABLES Final Result INTERFACE SYSTEM Refer to clinic/hospital department * (ABNORMAL) GLUCOSE FASTING (08/14/2020 9:32 AM CDT) Pathologist [facility] GLUCOSE-FASTIN G 102(H) 74 - 99 mg/dL 08/14/2020 1:27 PM CDT [facility] Blood Venipuncture / Unknown 08/14/2020 9:32 AM CDT 08/14/2020 12:54 PM CDT Narrative [facility] - 08/14/2020 1:27 PM CDT <100 mg/dl: Normal Fasting Glucose 100-125 mg/dl: Impaired Fasting Glucose >/=126 mg/dl: Provisional diagnosis of Diabetes The diagnosis must be confirmed. Ruchi Maynard MD CHEMISTRY ORDERABLES Citlalli l Result Performing Organization Address City/[facility] Co de Phone Number [facility] [employer] [facility] [address] [phone] [facility] [employer] [facility] CLIA# [id number] [address] [place] [address] from Last 3 Months or Most Recently Relevant to Health Maintenance Insurance MEDICAID [place] [employer] [place] ADV [facility] Address: [address] [address] [place] [address] RX INFOCROSSING Medicaid RX [employer] Medicare Part D MEDICAID [place] Advance Directives For more information, please contact: [phone] * Full Code (Latest Code Status on File) Date Activated Date Inactivated Comments 12/18/2024 6:05 PM 12/19/2024 2:08 PM * Full Code Date Activated Date Inactivated Comments 08/25/2024 12:29 PM 08/30/2024 5:26 PM * Default Full Code - Needs Discussion Date Activated Date Inactivated Comments 08/23/2024 8:18 PM 08/25/2024 12:28 PM * Full Code Date Activated Date Inactivated Comments 06/17/2024 4:47 PM 06/24/2024 4:18 PM * Full Code Date Activated Date Inactivated Comments 06/11/2024 8:12 PM 06/16/2024 12:54 PM Care Teams Tune Up Mechanic Relationship Specialty Start Date End Date Jose Juan Self MD [address] [phone] PCP - General Family Practice 01/11/25
[2025-02-06 17:30] LABS: Troponin(5th) Baseline < 6 ng/L (0-15)
[2025-02-06 17:40] LABS: NT Pro B Type Natriuretic Pept 85 pg/mL (0-125); Procalcitonin 0.06 ng/mL (0-0.5)
[2025-02-06 17:52] LABS: Alanine Aminotransferase 15 U/L (0-41); Albumin Level 4.6 g/dL (3.5-5.2); Alkaline Phosphatase 107 U/L (40-130); Anion Gap 16.1 (5-19); Aspartate Amino Transferase 17 U/L (0-40); Blood Urea Nitrogen 18 mg/dL (8-23); Calcium 9.7 mg/dL (8.5-10.5); Carbon Dioxide 33 mmol/L (22-29); Chloride 99 mmol/L (98-107); Creatinine Clr Calc Pharmacy 76.8995; Globulin 3.1 g/dL (1.3-4.6); Glucose 80 mg/dL (65-115); Osmolality Calculated 299 mOsm/kg (285-295); Potassium 4.1 mmol/L (3.5-5.1); Sodium 144 mmol/L (136-145); Total Protein 7.7 g/dL (6.6-8.7)
--- NOTE | 2025-02-06 17:55 | ECG_ITS ---
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 Measurements Intervals [place] Rate: 84 P: 73 IN: 174 QRS: 60 QRSD: 84 T: 62 QT: 379 QTc: 448 Interpretive Statements SINUS RHYTHM SEPTAL MYOCARDIAL INFARCTION , PROBABLY OLD [40+ ms Q WAVE IN V1/V2] Compared to ECG 02/06/2025 15:45:58 Myocardial infarct finding now present Electronically Signed On 02-07-2025 18:10:03 CDT by Luis Enrique Flanagan M.D. [email or web address]
--- NOTE | 2025-02-09 09:58 | DCPLANNER ---
messaged pulmonology for er f/u
== END 2025-02-06 17:58 | disposition home or self-care (01) ==
PROVIDERS: Emergency Provider Physician Assistant; PCP Family Medicine
DX: J44.1 Chronic obstructive pulmonary disease with (acute) exacerbation (principal); Z99.81 Dependence on supplemental oxygen
CPT/HCPCS: 71045; 80053; 83880; 84145; 84484; 85025; 93005; 96374; 99285; J2919

== ENCOUNTER → 2025-02-16 12:12 | Outpatient (BNVA) | payer MEDICARE, MEDICAID, SELFPAY | PROVIDERS: PCP Family Medicine; Visit Provider Internal Medicine | DX: J44.9 Chronic obstructive pulmonary disease, unspecified (principal); Z99.81 Dependence on supplemental oxygen; Z87.891 Personal history of nicotine dependence | CPT/HCPCS: 85025; 99204; 99495 ==

== ENCOUNTER → 2025-03-13 14:38 | Outpatient (BNVA) | payer MEDICARE, MEDICAID, SELFPAY | PROVIDERS: PCP Family Medicine; Visit Provider Internal Medicine | DX: J44.9 Chronic obstructive pulmonary disease, unspecified (principal); J96.10 Chronic respiratory failure, unspecified whether with hypoxia or hypercapnia; F41.8 Other specified anxiety disorders; F17.210 Nicotine dependence, cigarettes, uncomplicated; T78.40XA Allergy, unspecified, initial encounter; X58.XXXA Exposure to other specified factors, initial encounter | CPT/HCPCS: 36415; 85025; 86003; 99214; Q3014 ==